=== PATIENT | female | born 1990 | race Caucasian/White ===

== ENCOUNTER 2018-11-21 08:00 | Outpatient (CLI) | payer OTHER ==
[2018-11-21 08:41] LABS: ALANINE AMINOTRANSFERASE 26 U/L (12-78); ALBUMIN 3.3 G/DL (3.4-5.0); ALBUMIN/GLOBULIN RATIO 0.8 (1.1-1.5); ALKALINE PHOSPHATASE 133 IU/L (46-116); ANION GAP 6 (8-16); ASPARTATE AMINO TRANSFERASE 18 U/L (10-37); BILIRUBIN,TOTAL 0.4 MG/DL (0.1-1.0); BLOOD UREA NITROGEN 11 MG/DL (7-18); BUN/CREATININE RATIO 17.2 (6.6-38.0); CALCIUM 8.8 MG/DL (8.5-10.1); CHLORIDE 103 MMOL/L (99-107); CREATININE 0.64 MG/DL (0.40-0.90); GLUCOSE 211 MG/DL (70-104); POTASSIUM 4.5 MMOL/L (3.5-5.1); SODIUM 137 MMOL/L (135-145); TOTAL CARBON DIOXIDE 27.9 MMOL/L (24-32); TOTAL PROTEIN 7.4 G/DL (6.4-8.2); eGFR > 90 ML/MIN
== END 2018-11-21 23:59 | disposition home or self-care (01) ==
LOC: LAB 08:00
PROVIDERS: ATTEND Family Medicine
DX: R74.8 Abnormal levels of other serum enzymes (principal)
CPT/HCPCS: 36415; 80053; 82977

== ENCOUNTER 2018-12-02 11:25 | Outpatient (CLI) | payer OTHER | END 2018-12-02 23:59 | disposition home or self-care (01) | LOC: LAB 11:25 | PROVIDERS: ATTEND Family Medicine | DX: H53.9 Unspecified visual disturbance (principal) | CPT/HCPCS: 36415; 85651; 86140 ==

== ENCOUNTER 2018-12-04 07:38 | Outpatient (CLI) | payer OTHER ==
[2018-12-06] MEDS ORDERED: gadopentetate dimeglumine 10 MMOL/20 ML syringe IV ONE (09:21)
== END 2018-12-04 23:59 | disposition home or self-care (01) ==
LOC: RAD 07:38
PROVIDERS: ATTEND Ophthalmology
DX: I67.82 Cerebral ischemia (principal); H53.453 Other localized visual field defect, bilateral; Z88.2 Allergy status to sulfonamides
CPT/HCPCS: 70543; 70553

== ENCOUNTER 2018-12-15 00:29 | Outpatient (CLI) | payer OTHER | END 2018-12-15 23:59 | disposition home or self-care (01) | LOC: DIABETIC 00:29 | PROVIDERS: ATTEND Family Medicine | DX: E11.65 Type 2 diabetes mellitus with hyperglycemia (principal) | CPT/HCPCS: G0108 ==

== ENCOUNTER 2018-12-29 08:01 | Outpatient (CLI) | payer OTHER ==
[2018-12-29 08:56] LABS: ALANINE AMINOTRANSFERASE 18 U/L (12-78); ALBUMIN 3.4 G/DL (3.4-5.0); ALBUMIN/GLOBULIN RATIO 0.8 (1.1-1.5); ALKALINE PHOSPHATASE 129 IU/L (46-116); ANION GAP 8 (8-16); ASPARTATE AMINO TRANSFERASE 11 U/L (10-37); BILIRUBIN,TOTAL 0.3 MG/DL (0.1-1.0); BLOOD UREA NITROGEN 11 MG/DL (7-18); BUN/CREATININE RATIO 15.3 (6.6-38.0); CALCIUM 8.5 MG/DL (8.5-10.1); CHLORIDE 104 MMOL/L (99-107); CREATININE 0.72 MG/DL (0.40-0.90); GLUCOSE 205 MG/DL (70-104); POTASSIUM 4.2 MMOL/L (3.5-5.1); SODIUM 138 MMOL/L (135-145); TOTAL CARBON DIOXIDE 26.1 MMOL/L (24-32); TOTAL PROTEIN 7.5 G/DL (6.4-8.2); eGFR > 90 ML/MIN
[2018-12-29 08:58] LABS: HEMOGLOBIN A1C 8.5 % (4.5-6.2)
== END 2018-12-29 23:59 | disposition home or self-care (01) ==
LOC: LAB 08:01
PROVIDERS: ATTEND Family Medicine
DX: E10.65 Type 1 diabetes mellitus with hyperglycemia (principal); R74.8 Abnormal levels of other serum enzymes; H53.9 Unspecified visual disturbance
CPT/HCPCS: 36415; 80053; 82977; 83036

== ENCOUNTER 2018-12-30 02:45 | Outpatient (CLI) | payer OTHER | END 2018-12-30 23:59 | disposition home or self-care (01) | LOC: DIABETIC 02:45 | PROVIDERS: ATTEND Family Medicine | DX: E10.9 Type 1 diabetes mellitus without complications (principal); E66.9 Obesity, unspecified; Z79.4 Long term (current) use of insulin; Z79.899 Other long term (current) drug therapy | CPT/HCPCS: G0108 ==

== ENCOUNTER 2019-01-13 02:03 | Outpatient (CLI) | payer OTHER | END 2019-01-13 23:59 | disposition home or self-care (01) | LOC: DIABETIC 02:03 | PROVIDERS: ATTEND Family Medicine | DX: E10.9 Type 1 diabetes mellitus without complications (principal); E66.9 Obesity, unspecified; Z79.4 Long term (current) use of insulin; Z79.899 Other long term (current) drug therapy | CPT/HCPCS: G0108 ==

== ENCOUNTER 2019-03-03 04:30 | Outpatient (CLI) | payer OTHER | END 2019-03-03 23:59 | disposition home or self-care (01) | LOC: DIABETIC 04:30 | PROVIDERS: ATTEND Family Medicine | DX: E10.9 Type 1 diabetes mellitus without complications (principal); E66.9 Obesity, unspecified; Z79.4 Long term (current) use of insulin; Z79.899 Other long term (current) drug therapy | CPT/HCPCS: G0108 ==

== ENCOUNTER 2019-03-06 08:11 | Outpatient (CLI) | payer OTHER ==
[2019-03-06 09:13] LABS: BASOPHILS # (AUTO) 0.1 X10'3 (0-0.2); BASOPHILS % (AUTO) 0.8 % (0-1); EOSINOPHILS # (AUTO) 0.1 X10'3 (0-0.9); EOSINOPHILS % (AUTO) 1.5 % (0-6); HEMATOCRIT 39.3 % (35.0-45.0); LYMPHOCYTES # (AUTO) 1.8 X10'3 (1.1-4.8); LYMPHOCYTES % (AUTO) 23.9 % (21-51); MEAN CORPUSCULAR HEMOGLOBIN 28.3 PG (27.0-31.0); MEAN CORPUSCULAR HGB CONC 33.1 g/dL (33.0-36.5); MEAN CORPUSCULAR VOLUME 85.4 FL (78-98); MEAN PLATELET VOLUME 10.5 FL (7.4-10.4); MONOCYTES # (AUTO) 0.4 X10'3 (0-0.9); MONOCYTES % (AUTO) 5.7 % (2-12); NEUTROPHILS % (AUTO) 68.1 % (42-75); PLATELET COUNT 238 X10'3 (140-440); RED CELL DISTRIBUTION WIDTH 14.3 % (11.5-14.5); WHITE BLOOD COUNT 7.4 X10'3 (4.5-11.0)
[2019-03-06 09:22] LABS: CLARITY,URINE CLEAR (Clear); COLOR,URINE YELLOW (Yellow); GLUCOSE, URINE 250 mg/dl (Neg); KETONES,URINE >=80 mg/dl (Neg); LEUKOCYTE ESTERASE ,URINE NEGATIVE (Neg); NITRITES, URINE NEGATIVE (Neg); OCCULT BLOOD,URINE NEGATIVE (Neg); PROTEIN,URINE NEGATIVE (Neg)
[2019-03-06 09:23] LABS: UA COLLECTION TYPE NON-SPECIFIED
[2019-03-06 09:29] LABS: ALANINE AMINOTRANSFERASE 6 U/L (12-78); ALBUMIN 3.4 G/DL (3.4-5.0); ALBUMIN/GLOBULIN RATIO 0.8 (1.1-1.5); ALKALINE PHOSPHATASE 106 IU/L (46-116); ANION GAP 8 (8-16); ASPARTATE AMINO TRANSFERASE 11 U/L (10-37); BILIRUBIN,TOTAL 0.4 MG/DL (0.1-1.0); BLOOD UREA NITROGEN 6 MG/DL (7-18); BUN/CREATININE RATIO 7.7 (6.6-38.0); C-REACTIVE PROTEIN 0.97 MG/DL (0.0-0.5); CALCIUM 8.8 MG/DL (8.5-10.1); CHLORIDE 104 MMOL/L (99-107); CREATINE KINASE 74 U/L (26-192); CREATININE 0.78 MG/DL (0.40-0.90); GLUCOSE 232 MG/DL (70-104); POTASSIUM 4.3 MMOL/L (3.5-5.1); SODIUM 138 MMOL/L (135-145); TOTAL CARBON DIOXIDE 25.9 MMOL/L (24-32); TOTAL PROTEIN 7.5 G/DL (6.4-8.2); eGFR 89 ML/MIN
[2019-03-06 09:48] LABS: LARGE PLATELETS FEW; PLATELET ESTIMATE NORMAL
[2019-03-06 10:05] LABS: RHEUM FACTOR QUAL REFLEX TITER NEGATIVE (Neg)
[2019-03-07 20:32] LABS: ANTINUCLEAR ANTIBODIES Negative (Negative)
[2019-03-09 08:09] LABS: ALDOLASE 2.7 U/L (3.3-10.3)
== END 2019-03-06 23:59 | disposition home or self-care (01) ==
LOC: LAB 08:11
PROVIDERS: ATTEND Family Medicine
DX: L02.232 Carbuncle of back [any part, except buttock and flank] (principal)
CPT/HCPCS: 36415; 80053; 81003; 82085; 82550; 85025; 86038; 86140; 86430

== ENCOUNTER 2019-04-11 22:06 | Emergency (ER) | payer OTHER ==
[~2019-04-11] VITALS: Ht 157.5 cm; Wt 93.0 kg
[2019-04-11] MEDS ORDERED: LORazepam 1 MG tablet PO ONE (22:20)
[2019-04-11 23:50] VITALS: BP 120/71
== END 2019-04-11 23:51 | disposition home or self-care (01) ==
LOC: ER 22:07
DX: F41.9 Anxiety disorder, unspecified (principal); R11.2 Nausea with vomiting, unspecified; Z88.2 Allergy status to sulfonamides
CPT/HCPCS: 99284

== ENCOUNTER → 2019-09-04 | Outpatient (CLI) | payer OTHER ==
[2019-09-04 14:01] LABS: BASOPHILS # (AUTO) 0.1 X10'3 (0-0.2); BASOPHILS % (AUTO) 0.9 % (0-1); EOSINOPHILS # (AUTO) 0.2 X10'3 (0-0.9); EOSINOPHILS % (AUTO) 1.8 % (0-6); HEMATOCRIT 40.9 % (35.0-45.0); HEMOGLOBIN 13.4 g/dl (12.0-16.0); LYMPHOCYTES # (AUTO) 2.4 X10'3 (1.1-4.8); LYMPHOCYTES % (AUTO) 27.4 % (21-51); MEAN CORPUSCULAR HEMOGLOBIN 27.8 PG (27.0-31.0); MEAN CORPUSCULAR HGB CONC 32.7 g/dL (33.0-36.5); MEAN CORPUSCULAR VOLUME 85.1 FL (78-98); MEAN PLATELET VOLUME 10.6 FL (7.4-10.4); MONOCYTES # (AUTO) 0.6 X10'3 (0-0.9); MONOCYTES % (AUTO) 6.5 % (2-12); NEUTROPHILS # (AUTO) 5.6 X10'3 (1.8-7.7); NEUTROPHILS % (AUTO) 63.4 % (42-75); PLATELET COUNT 216 X10'3 (140-440); RED CELL DISTRIBUTION WIDTH 13.9 % (11.5-14.5); WHITE BLOOD COUNT 8.9 X10'3 (4.5-11.0)
[2019-09-04 14:10] LABS: HEMOGLOBIN A1C 7.5 % (4.5-6.2)
[2019-09-04 14:31] LABS: LARGE PLATELETS FEW; PLATELET ESTIMATE NORMAL
[2019-09-04 14:45] LABS: ALANINE AMINOTRANSFERASE 16 U/L (12-78); ALBUMIN 3.4 G/DL (3.4-5.0); ALBUMIN/GLOBULIN RATIO 0.9 (1.1-1.5); ALKALINE PHOSPHATASE 102 IU/L (46-116); ANION GAP 7 (8-16); ASPARTATE AMINO TRANSFERASE 13 U/L (10-37); BILIRUBIN,TOTAL 0.2 MG/DL (0.1-1.0); BLOOD UREA NITROGEN 10 MG/DL (7-18); BUN/CREATININE RATIO 12.2 (6.6-38.0); C-REACTIVE PROTEIN 0.54 MG/DL (0.0-0.5); CALCIUM 8.8 MG/DL (8.5-10.1); CHLORIDE 106 MMOL/L (99-107); CREATININE 0.82 MG/DL (0.40-0.90); GLUCOSE 131 MG/DL (70-104); POTASSIUM 3.9 MMOL/L (3.5-5.1); SODIUM 139 MMOL/L (135-145); TOTAL CARBON DIOXIDE 25.7 MMOL/L (24-32); TOTAL PROTEIN 7.2 G/DL (6.4-8.2); eGFR 84 ML/MIN
[2019-09-04 14:47] LABS: RHEUM FACTOR QUAL REFLEX TITER NEGATIVE (Neg)
== END | disposition home or self-care (01) ==
LOC: LAB 12:56
PROVIDERS: ATTEND Family Medicine
DX: K21.9 Gastro-esophageal reflux disease without esophagitis (principal); M25.50 Pain in unspecified joint; F32.9 Major depressive disorder, single episode, unspecified
CPT/HCPCS: 36415; 80053; 82043; 83036; 84439; 84443; 85025; 85651; 86038; 86140; 86430

== ENCOUNTER → 2019-09-11 | Outpatient (CLI) | payer OTHER ==
[2019-09-11 09:08] LABS: BASOPHILS # (AUTO) 0.1 X10'3 (0-0.2); BASOPHILS % (AUTO) 0.9 % (0-1); EOSINOPHILS # (AUTO) 0.3 X10'3 (0-0.9); EOSINOPHILS % (AUTO) 3.2 % (0-6); HEMATOCRIT 40.5 % (35.0-45.0); HEMOGLOBIN 13.3 g/dl (12.0-16.0); LYMPHOCYTES % (AUTO) 23.1 % (21-51); MEAN CORPUSCULAR HEMOGLOBIN 28.1 PG (27.0-31.0); MEAN CORPUSCULAR HGB CONC 32.8 g/dL (33.0-36.5); MEAN CORPUSCULAR VOLUME 85.6 FL (78-98); MEAN PLATELET VOLUME 10.4 FL (7.4-10.4); MONOCYTES # (AUTO) 0.8 X10'3 (0-0.9); NEUTROPHILS # (AUTO) 5.5 X10'3 (1.8-7.7); NEUTROPHILS % (AUTO) 63.8 % (42-75); PLATELET COUNT 222 X10'3 (140-440); RED BLOOD COUNT 4.73 X10'6 (4.20-5.60); RED CELL DISTRIBUTION WIDTH 13.9 % (11.5-14.5); WHITE BLOOD COUNT 8.6 X10'3 (4.5-11.0)
[2019-09-11 09:32] LABS: HIV ANTIBODY 1&2 RAPID NON-REACTIVE (Neg)
== END | disposition home or self-care (01) ==
LOC: RAD 09-10 14:03
PROVIDERS: ATTEND Family Medicine
DX: M16.0 Bilateral primary osteoarthritis of hip (principal); M79.89 Other specified soft tissue disorders; F41.1 Generalized anxiety disorder; K21.9 Gastro-esophageal reflux disease without esophagitis; R23.2 Flushing; R68.82 Decreased libido; M25.562 Pain in left knee; M25.561 Pain in right knee; M25.512 Pain in left shoulder; M25.511 Pain in right shoulder
CPT/HCPCS: 73030; 73522; 73564; 83001; 83002; 84146; 84402; 84403; 85025; 86703

== ENCOUNTER 2019-10-07 10:06 | Outpatient (CLI) | payer OTHER | END 2019-10-07 23:59 | disposition home or self-care (01) | LOC: RAD 10:06 | PROVIDERS: ATTEND Family Medicine | DX: N83.202 Unspecified ovarian cyst, left side (principal); N83.201 Unspecified ovarian cyst, right side | CPT/HCPCS: 76830; 76856 ==

== ENCOUNTER 2019-11-26 13:18 | Outpatient (CLI) | payer OTHER ==
[2019-11-26 14:14] LABS: CREATINE KINASE 81 U/L (26-192)
== END 2019-11-26 23:59 | disposition home or self-care (01) ==
LOC: LAB 13:18
PROVIDERS: ATTEND Family Medicine
DX: R53.1 Weakness (principal); M25.50 Pain in unspecified joint; H53.9 Unspecified visual disturbance
CPT/HCPCS: 36415; 82550; 85651; 86200

== ENCOUNTER 2020-04-25 22:23 | Emergency (ER) | payer BC, OTHER ==
[~2020-04-25] VITALS: Ht 160 cm; Wt 100.2 kg
[~2020-04-25 22:23] MED LIST: Melatonin 3mg tablet PO SCH
[2020-04-25] MEDS ORDERED: LORazepam 1 MG tablet PO ONE (23:00)
[2020-04-25 23:04] LABS: BASOPHILS # (AUTO) 0.1 X10'3 (0-0.2); BASOPHILS % (AUTO) 1.6 % (0-1); EOSINOPHILS # (AUTO) 0.2 X10'3 (0-0.9); EOSINOPHILS % (AUTO) 2.3 % (0-6); HEMATOCRIT 40.3 % (35.0-45.0); HEMOGLOBIN 13.6 g/dl (12.0-16.0); LYMPHOCYTES # (AUTO) 2.7 X10'3 (1.1-4.8); LYMPHOCYTES % (AUTO) 34.8 % (21-51); MEAN CORPUSCULAR HEMOGLOBIN 28.3 PG (27.0-31.0); MEAN CORPUSCULAR HGB CONC 33.7 g/dL (33.0-36.5); MEAN PLATELET VOLUME 10.1 FL (7.4-10.4); MONOCYTES # (AUTO) 0.6 X10'3 (0-0.9); MONOCYTES % (AUTO) 7.3 % (2-12); NEUTROPHILS # (AUTO) 4.3 X10'3 (1.8-7.7); PLATELET COUNT 230 X10'3 (140-440); RED CELL DISTRIBUTION WIDTH 13.6 % (11.5-14.5); WHITE BLOOD COUNT 7.9 X10'3 (4.5-11.0)
--- NOTE | 2020-04-25 23:16 | NUR ---
PT BROUGHT STRAIGHT BACK, TRIAGED AND SEEN BY DR. PINON. PT STATES THAT SHE HAS HAD BUILDING AMOUNTS OF STRESS AND IT IS MAKING HER PANIC DISORDER WORSE. SHE STATES SHE IS HAVING FREQUENT PANICK ATTACKS AND IT HAS BEEN WAKING HER UP AT NIGHT. HER JOB IS VERY STRESSFUL DUE TO SHORT STAFFING AND THE CURRENT MEDICATIONS SHE IS ON SHE FEELS ARE NOT WORKING.
[2020-04-25 23:20] LABS: ALANINE AMINOTRANSFERASE 43 U/L (12-78); ALBUMIN 3.2 G/DL (3.4-5.0); ALBUMIN/GLOBULIN RATIO 0.8 (1.1-1.5); ALKALINE PHOSPHATASE 95 IU/L (46-116); ANION GAP 9 (8-16); ASPARTATE AMINO TRANSFERASE 23 U/L (10-37); BILIRUBIN,TOTAL 0.3 MG/DL (0.1-1.0); BLOOD UREA NITROGEN 9 MG/DL (7-18); BUN/CREATININE RATIO 10.5 (6.6-38.0); CALCIUM 8.8 MG/DL (8.5-10.1); CHLORIDE 105 MMOL/L (99-107); CREATININE 0.86 MG/DL (0.40-0.90); ETHANOL < 0.010 GM/DL (0.0-0.010); GLUCOSE 146 MG/DL (70-104); POTASSIUM 3.5 MMOL/L (3.5-5.1); SODIUM 139 MMOL/L (135-145); TOTAL CARBON DIOXIDE 25.3 MMOL/L (24-32); TOTAL PROTEIN 7.4 G/DL (6.4-8.2); eGFR 79 ML/MIN
--- NOTE | 2020-04-25 23:20 | NUR ---
PT GIVEN ATIVAN 1MG PO PER DR. PINON
[2020-04-25 23:21] LABS: ACETAMINOPHEN < 2.0 UG/ML (10-30)
[2020-04-25 23:45] LABS: URINE HCG NEGATIVE (NEG)
[2020-04-25 23:57] LABS: URINE AMPHETAMINE SCREEN NEGATIVE (Neg); URINE BARBITUATE SCREEN NEGATIVE (Neg); URINE BENZODIAZEPINES SCREEN NEGATIVE (Neg); URINE CANNABINOID SCREEN NEGATIVE (Neg); URINE COCAINE SCREEN NEGATIVE (Neg); URINE METHADONE SCREEN NEGATIVE (Neg); URINE OPIATE SCREEN NEGATIVE (Neg); URINE PHENCYCLIDINE SCREEN NEGATIVE (Neg)
[2020-04-26] MEDS ORDERED: PARO10TA85 PO (00:25)
[2020-04-26] MEDS ORDERED: VILA40TA PO (00:26)
[2020-04-26] MEDS ORDERED: BUPR150T8 PO (00:33)
[2020-04-26] MEDS ORDERED: ETHI1TAB20 PO (00:34)
[2020-04-26] MEDS ORDERED: PROP10TA10 PO (00:42)
[2020-04-26] MEDS ORDERED: LISI2.5T89 PO (00:44)
[2020-04-26] MEDS ORDERED: INSU100V46 (00:45)
[2020-04-26] MEDS ORDERED: LORA-269 PO (00:48)
--- NOTE | 2020-04-26 01:18 | NUR ---
PT REQUESTS MEDICATION TO HELP HER SLEEP, PER DR. PINON MELATONIN 3MG PO GIVEN
[2020-04-26] MEDS ORDERED: LORazepam 0.5 MG tablet PO PRN (01:25)
--- NOTE | 2020-04-26 02:49 | NUR ---
PT IS ASLEEP ON R SIDE, RESPIRATIONS EVEN AND UNLABORED
--- NOTE | 2020-04-26 04:11 | NUR ---
PACKET FAXED TO [facility]
--- NOTE | 2020-04-26 04:52 | NUR ---
Izabela pablo in [facility] - 04/26/20 at 0454 by KIRK Pt put in bed 15, helped into green scrubs, belongings bagged and room secured. Pt resting in bed with warm blankets, sleeping.
[2020-04-26 05:10] VITALS: BP 104/53
--- NOTE | 2020-04-26 05:11 | NUR ---
Pt resting in bed, sleeping with RR 14
[2020-04-26] MEDS ORDERED: buPROPion SR 150mg tablet PO SCH (08:00)
[2020-04-26] MEDS ORDERED: propranolol 10mg tablet PO SCH (08:00)
--- NOTE | 2020-04-26 09:45 | NUR ---
Pt talking with [facility] evaluater at bedside.
--- NOTE | 2020-04-26 10:01 | NUR ---
PT MOVED FROM ER BED 13 TO OVERFLOW BED 25.
[2020-04-26] MEDS ORDERED: insulin pump.resvr SQ SCH (12:00)
[2020-04-26] MEDS ORDERED: VILAZODONE HYDROCHLORIDE 40 MG PO SCH ×2 (21:00)
[2020-04-26] MEDS ORDERED: DROSPIRENONE PO SCH (21:00)
[2020-04-26] MEDS ORDERED: lisinopril 5mg tablet PO SCH (21:00)
[2020-04-26] MEDS ORDERED: PARoxetine 10mg tablet PO SCH (21:00)
[2020-04-26] MEDS ORDERED: ETHINYL ESTRADIOL PO SCH (21:00)
== END 2020-04-26 11:00 | disposition home or self-care (01) ==
LOC: ER 22:24 → EEVIPCON 22:24 → ER 04-26 11:00
DX: R45.851 Suicidal ideations (principal); F41.9 Anxiety disorder, unspecified; F32.9 Major depressive disorder, single episode, unspecified; E11.9 Type 2 diabetes mellitus without complications; Z88.2 Allergy status to sulfonamides; Z79.899 Other long term (current) drug therapy
CPT/HCPCS: 36415; 80053; 80305; 80320; 80329; 81025; 82948; 85025; 99284; 99285

== ENCOUNTER 2020-05-13 13:26 | Outpatient (CLI) | payer BC ==
[~2020-05-13 13:26] MED LIST changes: +BUPR150T8 PO; +ETHI1TAB20 PO; +INSU100V46; +LISI2.5T89 PO; +LORA-269 PO; -Melatonin 3mg tablet PO SCH; +PARO10TA85 PO; +PROP10TA10 PO; +VILA40TA PO
[2020-05-13 14:46] LABS: BASOPHILS # (AUTO) 0.1 X10'3 (0-0.2); BASOPHILS % (AUTO) 0.9 % (0-1); EOSINOPHILS # (AUTO) 0.2 X10'3 (0-0.9); EOSINOPHILS % (AUTO) 2.2 % (0-6); HEMATOCRIT 41.8 % (35.0-45.0); HEMOGLOBIN 13.9 g/dl (12.0-16.0); LYMPHOCYTES # (AUTO) 3.3 X10'3 (1.1-4.8); LYMPHOCYTES % (AUTO) 29.7 % (21-51); MEAN CORPUSCULAR HGB CONC 33.2 g/dL (33.0-36.5); MEAN CORPUSCULAR VOLUME 84.4 FL (78-98); MEAN PLATELET VOLUME 10.8 FL (7.4-10.4); MONOCYTES # (AUTO) 0.8 X10'3 (0-0.9); MONOCYTES % (AUTO) 7.3 % (2-12); NEUTROPHILS # (AUTO) 6.7 X10'3 (1.8-7.7); NEUTROPHILS % (AUTO) 59.9 % (42-75); PLATELET COUNT 327 X10'3 (140-440); RED BLOOD COUNT 4.96 X10'6 (4.20-5.60); RED CELL DISTRIBUTION WIDTH 13.5 % (11.5-14.5); WHITE BLOOD COUNT 11.2 X10'3 (4.5-11.0)
[2020-05-13 14:48] LABS: COLOR,URINE YELLOW (Yellow); GLUCOSE, URINE NEGATIVE (Neg); KETONES,URINE NEGATIVE (Neg); LEUKOCYTE ESTERASE ,URINE NEGATIVE (Neg); NITRITES, URINE NEGATIVE (Neg); OCCULT BLOOD,URINE NEGATIVE (Neg); PH,URINE 7.5 (4.8-8.0); PROTEIN,URINE NEGATIVE (Neg); UROBILINOGEN,URINE 0.2 E.U/dL (0.2-1.0)
[2020-05-13 14:54] LABS: CHOL/HDL RATIO 2.6 (0.00-4.99); CHOLESTEROL 227 MG/DL (0-200); HDL CHOLESTEROL 86 MG/DL (35-60); LDL CHOLESTEROL 115 MG/DL (50-100); TRIGLYCERIDES 94 MG/DL (20-135)
[2020-05-13 14:59] LABS: UA COLLECTION TYPE NON-SPECIFIED
[2020-05-13 15:00] LABS: CLARITY,URINE CLEAR (Clear)
== END 2020-05-13 23:59 | disposition home or self-care (01) ==
LOC: LAB 13:26
PROVIDERS: ATTEND Family Medicine
DX: M25.50 Pain in unspecified joint (principal)
CPT/HCPCS: 80061; 81003; 82652; 85025

== ENCOUNTER 2020-06-15 07:59 | Outpatient (CLI) | payer BC ==
[~2020-06-15 07:59] MED LIST changes: +DIAZ10TA PO
[2020-06-15 08:37] LABS: BASOPHILS # (AUTO) 0.1 X10'3 (0-0.2); BASOPHILS % (AUTO) 1.2 % (0-1); EOSINOPHILS # (AUTO) 0.1 X10'3 (0-0.9); EOSINOPHILS % (AUTO) 2.1 % (0-6); HEMATOCRIT 39.4 % (35.0-45.0); HEMOGLOBIN 13.1 g/dl (12.0-16.0); LYMPHOCYTES # (AUTO) 2.3 X10'3 (1.1-4.8); LYMPHOCYTES % (AUTO) 32.2 % (21-51); MEAN CORPUSCULAR HEMOGLOBIN 27.7 PG (27.0-31.0); MEAN CORPUSCULAR HGB CONC 33.3 g/dL (33.0-36.5); MEAN CORPUSCULAR VOLUME 83.3 FL (78-98); MEAN PLATELET VOLUME 9.6 FL (7.4-10.4); MONOCYTES # (AUTO) 0.5 X10'3 (0-0.9); MONOCYTES % (AUTO) 6.7 % (2-12); NEUTROPHILS # (AUTO) 4.1 X10'3 (1.8-7.7); NEUTROPHILS % (AUTO) 57.8 % (42-75); PLATELET COUNT 291 X10'3 (140-440); RED BLOOD COUNT 4.73 X10'6 (4.20-5.60); RED CELL DISTRIBUTION WIDTH 13.6 % (11.5-14.5); WHITE BLOOD COUNT 7.1 X10'3 (4.5-11.0)
[2020-06-15 09:03] LABS: ALANINE AMINOTRANSFERASE 56 U/L (12-78); ALBUMIN/GLOBULIN RATIO 0.7 (1.1-1.5); ALKALINE PHOSPHATASE 113 IU/L (46-116); ANION GAP 7 (8-16); ASPARTATE AMINO TRANSFERASE 21 U/L (10-37); BILIRUBIN,TOTAL 0.4 MG/DL (0.1-1.0); BLOOD UREA NITROGEN 10 MG/DL (7-18); BUN/CREATININE RATIO 12.3 (6.6-38.0); CALCIUM 9.1 MG/DL (8.5-10.1); CHLORIDE 104 MMOL/L (99-107); CHOL/HDL RATIO 2.8 (0.00-4.99); CHOLESTEROL 216 MG/DL (0-200); CREATININE 0.81 MG/DL (0.40-0.90); GLUCOSE 219 MG/DL (70-104); HDL CHOLESTEROL 76 MG/DL (35-60); LDL CHOLESTEROL 106 MG/DL (50-100); POTASSIUM 4.4 MMOL/L (3.5-5.1); SODIUM 138 MMOL/L (135-145); TOTAL CARBON DIOXIDE 26.8 MMOL/L (24-32); TOTAL PROTEIN 7.4 G/DL (6.4-8.2); TRIGLYCERIDES 161 MG/DL (20-135); eGFR 84 ML/MIN
[2020-06-15 09:13] LABS: HEMOGLOBIN A1C 7.6 % (4.5-6.2)
== END 2020-06-15 23:59 | disposition home or self-care (01) ==
LOC: LAB 07:59
PROVIDERS: ATTEND Physician Assistant
DX: Z79.899 Other long term (current) drug therapy (principal)
CPT/HCPCS: 36415; 80053; 80061; 82306; 83036; 84443; 85025

== ENCOUNTER 2020-08-10 11:13 | Outpatient (CLI) | payer BC ==
[2020-08-10 12:15] LABS: BASOPHILS # (AUTO) 0.1 X10'3 (0-0.2); BASOPHILS % (AUTO) 0.8 % (0-1); EOSINOPHILS # (AUTO) 0.1 X10'3 (0-0.9); EOSINOPHILS % (AUTO) 1.2 % (0-6); HEMATOCRIT 40.2 % (35.0-45.0); HEMOGLOBIN 13.2 g/dl (12.0-16.0); LYMPHOCYTES # (AUTO) 2.5 X10'3 (1.1-4.8); LYMPHOCYTES % (AUTO) 30.1 % (21-51); MEAN CORPUSCULAR HEMOGLOBIN 27.7 PG (27.0-31.0); MEAN CORPUSCULAR HGB CONC 32.9 g/dL (33.0-36.5); MEAN CORPUSCULAR VOLUME 84.2 FL (78-98); MEAN PLATELET VOLUME 9.8 FL (7.4-10.4); MONOCYTES # (AUTO) 0.7 X10'3 (0-0.9); MONOCYTES % (AUTO) 7.8 % (2-12); NEUTROPHILS # (AUTO) 5.1 X10'3 (1.8-7.7); NEUTROPHILS % (AUTO) 60.1 % (42-75); PLATELET COUNT 290 X10'3 (140-440); RED BLOOD COUNT 4.77 X10'6 (4.20-5.60); RED CELL DISTRIBUTION WIDTH 13.3 % (11.5-14.5); WHITE BLOOD COUNT 8.5 X10'3 (4.5-11.0)
[2020-08-10 12:36] LABS: ALANINE AMINOTRANSFERASE 34 U/L (12-78); ALBUMIN/GLOBULIN RATIO 0.7 (1.1-1.5); ALKALINE PHOSPHATASE 125 IU/L (46-116); ANION GAP 10 (8-16); ASPARTATE AMINO TRANSFERASE 17 U/L (10-37); BILIRUBIN,TOTAL 0.2 MG/DL (0.1-1.0); BLOOD UREA NITROGEN 12 MG/DL (7-18); BUN/CREATININE RATIO 13.3 (6.6-38.0); CALCIUM 8.8 MG/DL (8.5-10.1); CHLORIDE 100 MMOL/L (99-107); GLUCOSE 368 MG/DL (70-104); SODIUM 136 MMOL/L (135-145); TOTAL CARBON DIOXIDE 25.9 MMOL/L (24-32); TOTAL PROTEIN 7.2 G/DL (6.4-8.2); eGFR 75 ML/MIN
[2020-08-10 12:53] LABS: H PYLORI ANTIBODY NEGATIVE (Neg)
== END 2020-08-10 23:59 | disposition home or self-care (01) ==
LOC: LAB 11:13
PROVIDERS: ATTEND Family Medicine
DX: R10.9 Unspecified abdominal pain (principal)
CPT/HCPCS: 36415; 80053; 85025; 86677

== ENCOUNTER 2020-08-11 10:02 | Outpatient (CLI) | payer BC | END 2020-08-11 23:59 | disposition home or self-care (01) | LOC: RAD 10:02 | PROVIDERS: ATTEND Family Medicine | DX: R16.0 Hepatomegaly, not elsewhere classified (principal); K80.20 Calculus of gallbladder without cholecystitis without obstruction | CPT/HCPCS: 76700 ==

== ENCOUNTER 2020-08-12 22:37 | Inpatient (IN) | payer BC ==
[~2020-08-12] VITALS: Ht 157.5 cm; Wt 104.5 kg
[2020-08-12 23:21] LABS: BASOPHILS # (AUTO) 0.1 X10'3 (0-0.2); BASOPHILS % (AUTO) 0.7 % (0-1); EOSINOPHILS # (AUTO) 0.1 X10'3 (0-0.9); EOSINOPHILS % (AUTO) 1.3 % (0-6); HEMATOCRIT 39.4 % (35.0-45.0); HEMOGLOBIN 13.3 g/dl (12.0-16.0); LYMPHOCYTES # (AUTO) 2.8 X10'3 (1.1-4.8); MEAN CORPUSCULAR HEMOGLOBIN 27.9 PG (27.0-31.0); MEAN CORPUSCULAR HGB CONC 33.8 g/dL (33.0-36.5); MEAN CORPUSCULAR VOLUME 82.7 FL (78-98); MEAN PLATELET VOLUME 10.1 FL (7.4-10.4); MONOCYTES # (AUTO) 0.6 X10'3 (0-0.9); MONOCYTES % (AUTO) 6.6 % (2-12); NEUTROPHILS # (AUTO) 5.7 X10'3 (1.8-7.7); NEUTROPHILS % (AUTO) 61.4 % (42-75); PLATELET COUNT 271 X10'3 (140-440); RED BLOOD COUNT 4.76 X10'6 (4.20-5.60); RED CELL DISTRIBUTION WIDTH 12.9 % (11.5-14.5); WHITE BLOOD COUNT 9.2 X10'3 (4.5-11.0)
--- NOTE | 2020-08-12 23:29 | NUR ---
PT CANNOT PROVIDE URINE SAMPLE AT THIS TIME
[2020-08-12 23:30] LABS: ALANINE AMINOTRANSFERASE 44 U/L (12-78); ALBUMIN/GLOBULIN RATIO 0.7 (1.1-1.5); ALKALINE PHOSPHATASE 119 IU/L (46-116); AMYLASE 28 U/L (25-115); ANION GAP 11 (8-16); ASPARTATE AMINO TRANSFERASE 29 U/L (10-37); BILIRUBIN,TOTAL 0.2 MG/DL (0.1-1.0); BLOOD UREA NITROGEN 12 MG/DL (7-18); BUN/CREATININE RATIO 14.5 (6.6-38.0); CALCIUM 8.9 MG/DL (8.5-10.1); CHLORIDE 104 MMOL/L (99-107); CREATININE 0.83 MG/DL (0.40-0.90); GLUCOSE 272 MG/DL (70-104); LIPASE 87 U/L (73-393); POTASSIUM 4.2 MMOL/L (3.5-5.1); SODIUM 138 MMOL/L (135-145); TOTAL CARBON DIOXIDE 23.2 MMOL/L (24-32); TOTAL PROTEIN 7.1 G/DL (6.4-8.2); eGFR 82 ML/MIN
--- NOTE | 2020-08-12 23:48 | NUR ---
UPDATED MD REGARDING PT'S INCREASING ABD PAIN, GLUCOSE LEVEL AND REQUEST FOR NAUSEA MEDS
[2020-08-13] VITALS (17 sets, daily range): BP systolic 87–145; BP diastolic 51–96
[2020-08-13 00:04] LABS: CLARITY,URINE CLEAR (Clear); COLOR,URINE YELLOW (Yellow); GLUCOSE, URINE >=1000 mg/dl (Neg); KETONES,URINE NEGATIVE (Neg); LEUKOCYTE ESTERASE ,URINE NEGATIVE (Neg); NITRITES, URINE NEGATIVE (Neg); OCCULT BLOOD,URINE NEGATIVE (Neg); PROTEIN,URINE NEGATIVE (Neg); UROBILINOGEN,URINE 0.2 E.U/dL (0.2-1.0)
[2020-08-13 00:06] LABS: UA COLLECTION TYPE CLN CATCH MIDSTREAM
[2020-08-13 00:08] LABS: URINE HCG NEGATIVE (NEG)
[2020-08-13 00:15] LABS: BACTERIA,URINE NONE SEEN /HPF (Neg); RBC,URINE NONE SEEN /HPF (0-2); SQUAMOUS EPITHELIAL CELL,UR FEW /LPF (FEW); WBC,URINE NONE SEEN /HPF (0-4)
[2020-08-13] MEDS ORDERED: metroNIDAZOLE-Flagyl 500mg/NS 100 ML IV STA (00:37)
[2020-08-13] MEDS ORDERED: morphine 4 MG/ML inj SYRINge IV ONE (00:40)
[2020-08-13] MEDS ORDERED: ondansetron/PF 4mg/2ml inj IV ONE (00:40)
[2020-08-13] MEDS ORDERED: CefTRIAXone/D5W-Rocephin 1gm 50 ML IV ONE (00:40)
[2020-08-13] MEDS ORDERED: ATOR10TA87 PO (01:36)
[2020-08-13] MEDS ORDERED: BUPR150T8 PO (01:36)
[2020-08-13] MEDS ORDERED: OMEP40CA13 PO (01:36)
[2020-08-13] MEDS ORDERED: HYDR-3686 PO (01:36)
[2020-08-13] MEDS ORDERED: VILA10TA PO (01:36)
[2020-08-13] MEDS ORDERED: PROP10TA10 PO (01:36)
[2020-08-13] MEDS ORDERED: DESV50TA10 PO (01:36)
[2020-08-13] MEDS ORDERED: CLON-527 PO (01:36)
[2020-08-13] MEDS ORDERED: MAGN100T PO (01:36)
[2020-08-13] MEDS ORDERED: ETHI1TAB20 PO (01:36)
--- NOTE | 2020-08-13 01:58 | NUR ---
PER DR CARDOZA- TURN OFF INSULIN PUMP AND START PATIENT ON LOW DOSE HYPERGLYCEMIC PROTOCOL.
[2020-08-13] MEDS ORDERED: dextrose ORAL solution 15 GM/59 ML bottle PO PRN ×2 (02:10)
[2020-08-13] MEDS ORDERED: glucagon, human recombinant 1mg kit SUBCUT PRN (02:10)
[2020-08-13] MEDS ORDERED: MESSAGE TO PHARMACY PO ONE (02:10)
[2020-08-13] MEDS ORDERED: dextrose 50%-water 50ml dispensing syringe IV PRN ×2 (02:10)
[2020-08-13] MEDS: insulin glargine (Lantus) pen - multi-dose SQ SCH ×2 (03:10→21:36)
[2020-08-13] MEDS ORDERED: magnesium Cl slow-release 64mg tablet PO PRN (03:30)
[2020-08-13] MEDS ORDERED: magnesium 2GM in 50ml NS 50 ML IV PRN (03:30)
[2020-08-13] MEDS ORDERED: potassium Cl 40MEQ/1/2NS 520ml 520 ML IV PRN ×2 (03:30)
[2020-08-13] MEDS ORDERED: acetaminophen 325mg tablet PO PRN (03:30)
[2020-08-13] MEDS ORDERED: potassium Cl 20 mEq SR tablet PO PRN ×2 (03:30)
[2020-08-13] MEDS ORDERED: magnesium 4gm in 100ml NS 100 ML IV PRN (03:30)
[2020-08-13] MEDS ORDERED: BUPR-317 PO (03:37)
[2020-08-13] MEDS: ondansetron/PF 4mg/2ml inj IV PRN ×2 (04:09→16:50)
[2020-08-13] MEDS: normal saline 1000ml 1,000 ML IV SCH ×2 (04:09→16:46)
[2020-08-13] MEDS: morphine 2 MG/ML inj. syringe IV PRN ×3 (04:10→20:59)
[2020-08-13] MEDS ORDERED: LORazepam 2 mg/ml vial IV PRN (04:50)
[2020-08-13] MEDS: insulin Lispro (HumaLOG) vial - multi-dose SQ SCH ×5 (05:00→21:34)
--- NOTE | 2020-08-13 05:40 | NUR ---
0400: Received report from Jorge Luis RN 0420: Patient arrived to unit via wheelchair, with belongings bag and small backpack. cell phone and wallet. Patient wants to keep those items at bedside, bag of clothes are n closet. Patient asked if I could check BG as she felt it was high. BG 297, I got an order to give insulin per protocol early, at a low dose. 4 units of insulin was given per protocol level 1 .
--- NOTE | 2020-08-13 06:23 | NUR ---
Problems reprioritized. Patient report given, questions answered & plan of care reviewed with LOURDES Duarte.
--- NOTE | 2020-08-13 06:44 | NUR ---
Patient in room [facility] 340. I have received report from LOURDES aSlinas and had the opportunity to ask questions and assume patient care.
[2020-08-13] MEDS: K and/or MAG REPLACEMENT MC SCH ×2 (08:00→20:00)
[2020-08-13] MEDS ORDERED: INDOCYANINE GREEN 25 MG/10 ML VIAL IV ONE (08:25)
[2020-08-13] MEDS: magnesium oxide 400mg tablet PO SCH (08:31)
[2020-08-13] MEDS: pantoprazole 40 MG vial IV SCH (08:51)
[2020-08-13] MEDS: LORazepam 2 mg/ml vial IV PRN ×3 (09:07→12:28)
[2020-08-13] MEDS ORDERED: BUPIVAcaine/PF 2.5 mg/ml (0.25%) 30ml vial ONE (09:45)
[2020-08-13] MEDS ORDERED: LIDOcaine 1% 30ml preserv. free vial ONE (09:45)
--- NOTE | 2020-08-13 10:10 | NUR ---
Received from OR via BED , accompanied by Anesthesiologist and report given by Anesthesiolgist. PATIENT WAKING UP, NO S/S OF PAIN, V/S WNL, SCD ON, 20G TO RUE, LAP SURGICAL SITES TO ABDOMEN CDI.
--- NOTE | 2020-08-13 10:13 | NUR ---
Called report to Yudith in the OR for Recovery and Surgery. Patient stable for transport.
[2020-08-13] MEDS ORDERED: morphine 2 MG/ML inj. syringe IV PRN (10:25)
[2020-08-13] MEDS ORDERED: ringers solution, lacted 1,000 ML IV SCH (10:25)
[2020-08-13] MEDS ORDERED: insulin regular, human U-100 3ml vial - multi-dose ONE (10:25)
[2020-08-13] MEDS ORDERED: meperidine/PF 25mg/ml syringe IV PRN ×3 (10:25)
[2020-08-13] MEDS ORDERED: ondansetron/PF 4mg/2ml inj IV PRN (10:25)
[2020-08-13] MEDS ORDERED: proCHLORperazine 10 MG/2 ml inj IV PRN (10:25)
[2020-08-13] MEDS ORDERED: fentaNYL/PF 50MCG/1 ML 2ML syringe ONE (10:27)
[2020-08-13] MEDS ORDERED: midazolam 1 mg/ML 2ml injection ONE (10:28)
[2020-08-13] MEDS ORDERED: propofol inj 20 ML IV ONE (10:33)
[2020-08-13] MEDS ORDERED: LIDOcaine 2% (20mg/ml) 5ml vial ONE (10:33)
[2020-08-13] MEDS ORDERED: ceFAZolin 1000mg inj ONE ×2 (10:53)
[2020-08-13] MEDS ORDERED: ondansetron/PF 4mg/2ml inj ONE (10:57)
[2020-08-13] MEDS ORDERED: dexamethasone sod phosphate 4mg/ml inj. ONE (10:57)
[2020-08-13] MEDS ORDERED: rocuronium 10mg/ml inj IV ONE (10:57)
[2020-08-13] MEDS ORDERED: acetaminophen 1,000mg/100ml IV 100 ML IV ONE (11:39)
[2020-08-13] MEDS ORDERED: HYDROcodone/acetaminophen 5mg/325mg tablet PO PRN (12:05)
--- NOTE | 2020-08-13 12:12 | NUR ---
PATIENT WIDE AWAKE NOW VERY PAINFUL SHORTLY AFTER ARRIVAL SEE EMAR, VERY EMOTIONAL WELL.
[2020-08-13] MEDS: morphine 4 MG/ML inj SYRINge IV PRN ×3 (12:19→12:39)
[2020-08-13] MEDS ORDERED: LORazepam 2 mg/ml vial IV ONE (12:20)
--- NOTE | 2020-08-13 12:39 | NUR ---
PATIENT UNABLE TO STOP CRYING, WILL NOT CALM DOWN, WHEN MEDS GIVEN SHE FALLS INTO A DEEP SLEEP AND HAS TO BE WOKE UP TO BE REMINDED TO BREATH, THIS HAS BEEN HER CONTINUED RESPONSE SINCE ARRIVAL SO FAR.
--- NOTE | 2020-08-13 12:50 | NUR ---
Received report from Cecil in recovery.
--- NOTE | 2020-08-13 12:50 | NUR ---
PATIENT A&OX4, 6/10 PAIN SEE EMAR, V/S WNL, SCD ON, 20G TO RUE, LAP SURGICAL SITES TO ABDOMEN CDI. PATIENT TAKEN TO SURGICAL AND PLACED ON MONITORS WITH CONTINOUS PULSE OX AND O2, STARTING TO CALM DOWN SLIGHTLY. REPORT GIVEN TO RN WHO HAS TAKEN OVER PATIENT CARE.
--- NOTE | 2020-08-13 12:54 | NUR ---
BG 160
[2020-08-13] MEDS: propranolol 10mg tablet PO SCH ×2 (13:00→21:00)
[2020-08-13] MEDS: HYDROcodone/acetaminophen 10/325mg tab PO PRN (14:36)
--- NOTE | 2020-08-13 15:08 | NUR ---
Patient appears to be sleeping comfortably but will wake up whimpering and crying stating in pain but will fall back asleep. Patient again waken up whimpering and stating in extreme pain 12/13. Patient back to sleep after pain med given. Spouse at bedside. Patient is now on 2LNC spo2 96%, vss. Will continue to monitor.
--- NOTE | 2020-08-13 18:49 | NUR ---
[place] documentation: I have reviewed and agree with all interventions, assessments performed and documented by LOURDES Oneill. [place] Medication Administration: For this medication-pass time frame, all medication were reviewed, dispensed, administered and documented per hospital policy by LOURDES Oneill.
--- NOTE | 2020-08-13 18:51 | NUR ---
Patient in room [facility] 340. I have received report from JAREN FREED AND YUSUF FREED and had the opportunity to ask questions and assume patient care.
--- NOTE | 2020-08-13 18:54 | NUR ---
Problems reprioritized. Patient report given, questions answered & plan of care reviewed with LOURDES Davis.
[2020-08-14 00:09] VITALS: BP 105/69
[2020-08-14] MEDS: normal saline 1000ml 1,000 ML IV SCH ×2 (00:29→10:22)
[2020-08-14] MEDS: ondansetron/PF 4mg/2ml inj IV PRN ×2 (02:27→08:06)
[2020-08-14] MEDS: morphine 2 MG/ML inj. syringe IV PRN (02:28)
[2020-08-14] MEDS: LORazepam 2 mg/ml vial IV PRN (02:59)
[2020-08-14] MEDS: HYDROcodone/acetaminophen 10/325mg tab PO PRN ×2 (04:30→08:53)
[2020-08-14 06:17] LABS: BASOPHILS % (AUTO) 0.5 % (0-1); EOSINOPHILS % (AUTO) 0 % (0-6); HEMATOCRIT 37.8 % (35.0-45.0); HEMOGLOBIN 12.2 g/dl (12.0-16.0); LYMPHOCYTES # (AUTO) 1.6 X10'3 (1.1-4.8); LYMPHOCYTES % (AUTO) 15.7 % (21-51); MEAN CORPUSCULAR HEMOGLOBIN 27.8 PG (27.0-31.0); MEAN CORPUSCULAR HGB CONC 32.3 g/dL (33.0-36.5); MEAN CORPUSCULAR VOLUME 86.1 FL (78-98); MEAN PLATELET VOLUME 10.7 FL (7.4-10.4); MONOCYTES # (AUTO) 0.7 X10'3 (0-0.9); MONOCYTES % (AUTO) 7.3 % (2-12); NEUTROPHILS # (AUTO) 7.7 X10'3 (1.8-7.7); NEUTROPHILS % (AUTO) 76.5 % (42-75); PLATELET COUNT 225 X10'3 (140-440); RED BLOOD COUNT 4.39 X10'6 (4.20-5.60); RED CELL DISTRIBUTION WIDTH 13.5 % (11.5-14.5)
[2020-08-14 06:28] LABS: ALBUMIN 2.7 G/DL (3.4-5.0); ANION GAP 16 (8-16); BLOOD UREA NITROGEN 8 MG/DL (7-18); BUN/CREATININE RATIO 11.1 (6.6-38.0); CALCIUM 8.7 MG/DL (8.5-10.1); CHLORIDE 103 MMOL/L (99-107); CREATININE 0.72 MG/DL (0.40-0.90); GLUCOSE 332 MG/DL (70-104); MAGNESIUM 1.9 MG/DL (1.5-2.4); POTASSIUM 4.6 MMOL/L (3.5-5.1); SODIUM 134 MMOL/L (135-145); eGFR > 90 ML/MIN
--- NOTE | 2020-08-14 06:32 | NUR ---
Problems reprioritized. Patient report given, questions answered & plan of care reviewed with JAREN FREED/GÉNESIS FREED.
--- NOTE | 2020-08-14 06:40 | NUR ---
Patient in room [facility] 340. I have received report from LOURDES Davis and had the opportunity to ask questions and assume patient care.
--- NOTE | 2020-08-14 07:03 | NUR ---
PAGER ID: [phone] MESSAGE: Mai Ni [phone] - Cari Idalia - Room 340A - Conflicting dietary orders, please clarify if patient is Full Liquids or NPO diet. Thank you.
[2020-08-14] MEDS: pantoprazole 40 MG vial IV SCH (07:56)
[2020-08-14] MEDS: magnesium oxide 400mg tablet PO SCH (07:57)
[2020-08-14 08:00] VITALS: BP 109/67
[2020-08-14] MEDS ORDERED: DROSPIRENONE PO SCH (08:00)
[2020-08-14] MEDS ORDERED: ETHINYL ESTRADIOL PO SCH (08:00)
[2020-08-14] MEDS ORDERED: clonazePAM 1mg tablet PO SCH (08:00)
[2020-08-14] MEDS ORDERED: venlafaxine 25mg tablet PO SCH (08:00)
[2020-08-14] MEDS ORDERED: hydrOXYzine 25 MG tablet PO SCH (08:00)
[2020-08-14] MEDS ORDERED: buPROPion SR 150mg tablet PO SCH (08:00)
[2020-08-14] MEDS ORDERED: atorvastatin 10mg tablet PO SCH (08:00)
[2020-08-14] MEDS ORDERED: CefTRIAXone 2gm/D5W 50ml BAG 50 ML IV SCH (08:00)
[2020-08-14] MEDS ORDERED: lisinopril 5mg tablet PO SCH (08:00)
[2020-08-14] MEDS: K and/or MAG REPLACEMENT MC SCH (08:00)
[2020-08-14] MEDS: propranolol 10mg tablet PO SCH (08:06)
[2020-08-14] MEDS: insulin Lispro (HumaLOG) vial - multi-dose SQ SCH (10:18)
--- NOTE | 2020-08-14 10:52 | NUR ---
[place] documentation: I have reviewed and agree with all interventions, assessments performed and documented by LOURDES Oneill . [place] Medication Administration: For this medication-pass time frame, all medication were reviewed, dispensed, administered and documented per hospital policy by LOURDES Oneill .
[2020-08-14] MEDS ORDERED: HYDR-3965 PO (11:03)
[2020-08-14] MEDS ORDERED: SODI650T29 PO (11:03)
[2020-08-14] MEDS ORDERED: DOCU-148 PO (11:03)
--- NOTE | 2020-08-14 11:04 | NUR ---
PAGER ID: [phone] MESSAGE: Mai Last [phone] - Cari Friedman - Room 340A - Patient request antiemetic to go home. Possibly Zofran?
[2020-08-14] MEDS ORDERED: ONDA4TAB6 PO (11:40)
--- NOTE | 2020-08-14 12:00 | NUR ---
Duplicate orders for [place] scripts for the patient. Patient was sent with the paper script for [place] and the escript for [place] to [facility] on [address] was cancelled by phone by pharmacist Hi.
--- NOTE | 2020-08-14 12:16 | NUR ---
DM Consult: A1C 7.9; pt in process of discharging during RD visit. Written DM ed w/ RD contact information given to RN to be placed w/ pt information packet. Addendum: 08/14/20 at [address] Amended: Links added.
--- NOTE | 2020-08-14 12:55 | NUR ---
Patient discharged to home accompanied by her in a private vehicle. Patient was able to ambulate on her own to the front of the hospital without aid. Patient cleaned her own room and packed her belongings. Patient has been very emotional and had high levels of anxiety this hospital stay. Patient was given discharge instructions and the opportunity to ask questions and have them answered. Dr Grimes came by and advised the patient of the need to ambulate to aid in healing. Patient has been reluctant to ambulate due to pain. Patient left with all belongings and was alert and oriented for transfer to home. Patient left with paper script for [facility] .
== END 2020-08-14 12:02 | disposition home or self-care (01) | DRG 418 ==
LOC: ER 22:37 → ED HOLD 08-13 03:30 → SUR 3N 08-13 04:20
PROVIDERS: ADMIT Internal Medicine; ATTEND Internal Medicine
PROC: BF532Z0 Other Imaging of Gallbladder and Bile Ducts using Fluorescing Agent, Intraoperative (ICD-10-PCS; 2020-08-13)
PROC: 8E0W4CZ Robotic Assisted Procedure of Trunk Region, Percutaneous Endoscopic Approach (ICD-10-PCS; 2020-08-13)
PROC: 0FT44ZZ Resection of Gallbladder, Percutaneous Endoscopic Approach (ICD-10-PCS; principal; 2020-08-13 10:22)
DX: K80.00 Calculus of gallbladder with acute cholecystitis without obstruction (principal); Z68.41 Body mass index [BMI] 40.0-44.9, adult; E10.65 Type 1 diabetes mellitus with hyperglycemia; E78.5 Hyperlipidemia, unspecified; F32.9 Major depressive disorder, single episode, unspecified; Z20.822 Contact with and (suspected) exposure to COVID-19; F41.0 Panic disorder [episodic paroxysmal anxiety]; R16.0 Hepatomegaly, not elsewhere classified; I10 Essential (primary) hypertension; K21.9 Gastro-esophageal reflux disease without esophagitis; K82.8 Other specified diseases of gallbladder; Z96.41 Presence of insulin pump (external) (internal); E66.01 Morbid (severe) obesity due to excess calories; Z79.4 Long term (current) use of insulin; Z88.2 Allergy status to sulfonamides; Z79.899 Other long term (current) drug therapy
CPT/HCPCS: 36415; 80048; 80053; 81001; 81003; 81025; 82150; 82948; 83036; 83605; 83690; 83735; 85025; 87081; 87635; 99285; A4215; A4618; A7000; C9113; G0378; J0131; J0690; J0696; J1100; J1815; J2001; J2060; J2175; J2250; J2270; J2405; J2704; J3010; J3490; J7030; J7120; Q0177

== ENCOUNTER 2021-04-17 21:08 | Emergency (ER) | payer BC ==
[~2021-04-17] VITALS: Ht 160 cm; Wt 109.0 kg
[~2021-04-17 21:08] MED LIST changes: +ATOR10TA87 PO; +BUPR-317 PO; -BUPR150T8 PO; +CLON-527 PO; +DESV50TA10 PO; -DIAZ10TA PO; +DOCU-148 PO; +HYDR-3686 PO; -INSU100V46; -LORA-269 PO; +MAGN100T PO; +OMEP40CA21 PO; +ONDA4TAB6 PO; -PARO10TA85 PO; +SODI650T29 PO; +VILA10TA PO; -VILA40TA PO
[2021-04-17] MEDS ORDERED: ondansetron 4mg rapidly disintigrating tab PO ONE (22:50)
[2021-04-17 23:10] LABS: BASOPHILS # (AUTO) 0.1 X10'3 (0-0.2); BASOPHILS % (AUTO) 1.1 % (0-1); EOSINOPHILS # (AUTO) 0.1 X10'3 (0-0.9); EOSINOPHILS % (AUTO) 1.5 % (0-6); HEMATOCRIT 39.6 % (35.0-45.0); HEMOGLOBIN 13.1 g/dl (12.0-16.0); LYMPHOCYTES % (AUTO) 31.6 % (21-51); MEAN CORPUSCULAR HEMOGLOBIN 26.9 PG (27.0-31.0); MEAN CORPUSCULAR HGB CONC 33.2 g/dL (33.0-36.5); MEAN PLATELET VOLUME 9.8 FL (7.4-10.4); MONOCYTES # (AUTO) 0.9 X10'3 (0-0.9); MONOCYTES % (AUTO) 9.6 % (2-12); NEUTROPHILS # (AUTO) 5.4 X10'3 (1.8-7.7); NEUTROPHILS % (AUTO) 56.2 % (42-75); PLATELET COUNT 269 X10'3 (140-440); RED BLOOD COUNT 4.89 X10'6 (4.20-5.60); RED CELL DISTRIBUTION WIDTH 13.6 % (11.5-14.5); WHITE BLOOD COUNT 9.5 X10'3 (4.5-11.0)
[2021-04-17 23:29] LABS: ALANINE AMINOTRANSFERASE 27 U/L (12-78); ALBUMIN 3.1 G/DL (3.4-5.0); ALBUMIN/GLOBULIN RATIO 0.7 (1.1-1.5); ALKALINE PHOSPHATASE 139 IU/L (46-116); ANION GAP 11 (8-16); ASPARTATE AMINO TRANSFERASE 14 U/L (10-37); BILIRUBIN,TOTAL 0.2 MG/DL (0.1-1.0); BLOOD UREA NITROGEN 13 MG/DL (7-18); CALCIUM 9.2 MG/DL (8.5-10.1); CHLORIDE 101 MMOL/L (99-107); CREATININE 0.81 MG/DL (0.40-0.90); GLUCOSE 239 MG/DL (70-104); LIPASE < 50 U/L (73-393); POTASSIUM 4.3 MMOL/L (3.5-5.1); SODIUM 136 MMOL/L (135-145); TOTAL CARBON DIOXIDE 23.6 MMOL/L (24-32); TOTAL PROTEIN 7.6 G/DL (6.4-8.2); eGFR 84 ML/MIN
[2021-04-18 05:24] LABS: URINE HCG NEGATIVE (NEG)
[2021-04-18] MEDS ORDERED: ondansetron 4mg rapidly disintigrating tab PO ONE (05:25)
[2021-04-18 05:27] LABS: CLARITY,URINE SLIGHTLY CLOUDY (Clear); COLOR,URINE YELLOW (Yellow); GLUCOSE, URINE 100 mg/dl (Neg); KETONES,URINE 40 mg/dl (Neg); LEUKOCYTE ESTERASE ,URINE NEGATIVE (Neg); NITRITES, URINE NEGATIVE (Neg); OCCULT BLOOD,URINE NEGATIVE (Neg); PROTEIN,URINE NEGATIVE (Neg); UROBILINOGEN,URINE 0.2 E.U/dL (0.2-1.0)
[2021-04-18 05:35] LABS: UA COLLECTION TYPE CLN CATCH MIDSTREAM
[2021-04-18 05:40] LABS: BACTERIA,URINE 2+ /HPF (Neg); RBC,URINE 0-2 /HPF (0-2)
[2021-04-18 05:41] LABS: WBC CLUMPS,URINE FEW /HPF (NEGATIVE)
[2021-04-18 05:42] LABS: SQUAMOUS EPITHELIAL CELL,UR MODERATE /LPF (FEW)
[2021-04-18] MEDS ORDERED: cephalexin 250mg capsule PO ONE (06:30)
[2021-04-18] MEDS ORDERED: NITR100C6 PO (07:28)
[2021-04-18 07:35] VITALS: BP 117/70
== END 2021-04-18 07:39 | disposition home or self-care (01) ==
LOC: ER 21:08 → EEVIPCON 21:08 → ER 04-18 07:39
DX: E11.65 Type 2 diabetes mellitus with hyperglycemia (principal); N39.0 Urinary tract infection, site not specified; F41.9 Anxiety disorder, unspecified; Z88.0 Allergy status to penicillin; Z79.899 Other long term (current) drug therapy
CPT/HCPCS: 36415; 76700; 80053; 81001; 81025; 82948; 83690; 85025; 87088; 93005; 99285

== ENCOUNTER 2021-05-14 16:19 | Emergency (ER) | payer BC ==
[~2021-05-14] VITALS: Ht 160 cm; Wt 109.0 kg
[~2021-05-14 16:19] MED LIST changes: +NITR100C6 PO
[2021-05-14 16:27] VITALS: BP 157/79
[2021-05-14] MEDS ORDERED: diphenhydrAMINE 50 mg/ml inj IV ONE (16:55)
[2021-05-14] MEDS ORDERED: normal saline 1000ML IV soln IVB ONE ×2 (16:55→17:50)
[2021-05-14] MEDS ORDERED: proCHLORperazine 10 MG/2 ml inj IV ONE (16:55)
[2021-05-14 16:58] LABS: BASOPHILS # (AUTO) 0.1 X10'3 (0-0.2); BASOPHILS % (AUTO) 0.7 % (0-1); EOSINOPHILS # (AUTO) 0.1 X10'3 (0-0.9); EOSINOPHILS % (AUTO) 0.6 % (0-6); HEMATOCRIT 41.9 % (35.0-45.0); HEMOGLOBIN 13.6 g/dl (12.0-16.0); LYMPHOCYTES # (AUTO) 2.4 X10'3 (1.1-4.8); LYMPHOCYTES % (AUTO) 20.1 % (21-51); MEAN CORPUSCULAR HEMOGLOBIN 26.4 PG (27.0-31.0); MEAN CORPUSCULAR HGB CONC 32.5 g/dL (33.0-36.5); MEAN CORPUSCULAR VOLUME 81.2 FL (78-98); MEAN PLATELET VOLUME 9.8 FL (7.4-10.4); MONOCYTES # (AUTO) 0.9 X10'3 (0-0.9); MONOCYTES % (AUTO) 7.3 % (2-12); NEUTROPHILS # (AUTO) 8.7 X10'3 (1.8-7.7); NEUTROPHILS % (AUTO) 71.3 % (42-75); PLATELET COUNT 290 X10'3 (140-440); RED BLOOD COUNT 5.16 X10'6 (4.20-5.60); RED CELL DISTRIBUTION WIDTH 13.9 % (11.5-14.5); WHITE BLOOD COUNT 12.2 X10'3 (4.5-11.0)
[2021-05-14 17:10] LABS: ALANINE AMINOTRANSFERASE 33 U/L (12-78); ALBUMIN 3.3 G/DL (3.4-5.0); ALBUMIN/GLOBULIN RATIO 0.8 (1.1-1.5); ALKALINE PHOSPHATASE 131 IU/L (46-116); ANION GAP 19 (8-16); ASPARTATE AMINO TRANSFERASE 25 U/L (10-37); BILIRUBIN,TOTAL 0.5 MG/DL (0.1-1.0); BLOOD UREA NITROGEN 12 MG/DL (7-18); BUN/CREATININE RATIO 14.8 (6.6-38.0); CALCIUM 8.9 MG/DL (8.5-10.1); CHLORIDE 99 MMOL/L (99-107); CREATININE 0.81 MG/DL (0.40-0.90); GLUCOSE 151 MG/DL (70-104); LIPASE < 50 U/L (73-393); POTASSIUM 4.1 MMOL/L (3.5-5.1); SODIUM 136 MMOL/L (135-145); TOTAL CARBON DIOXIDE 17.7 MMOL/L (24-32); TOTAL PROTEIN 7.7 G/DL (6.4-8.2); eGFR 84 ML/MIN
[2021-05-14 17:17] LABS: CLARITY,URINE CLEAR (Clear); COLOR,URINE YELLOW (Yellow); GLUCOSE, URINE >=1000 mg/dl (Neg); KETONES,URINE >=80 mg/dl (Neg); LEUKOCYTE ESTERASE ,URINE NEGATIVE (Neg); NITRITES, URINE NEGATIVE (Neg); OCCULT BLOOD,URINE NEGATIVE (Neg); PH,URINE 5.5 (4.8-8.0); PROTEIN,URINE NEGATIVE (Neg); UA COLLECTION TYPE CLN CATCH MIDSTREAM; UROBILINOGEN,URINE 0.2 E.U/dL (0.2-1.0)
[2021-05-14 17:18] LABS: URINE HCG NEGATIVE (NEG)
[2021-05-14 17:24] LABS: BACTERIA,URINE FEW /HPF (Neg); MUCUS STRANDS NONE SEEN /LPF (Neg); RBC,URINE NONE SEEN /HPF (0-2); SQUAMOUS EPITHELIAL CELL,UR FEW /LPF (FEW); WBC,URINE 0-4 /HPF (0-4)
[2021-05-14] MEDS ORDERED: LORazepam 2 mg/ml vial IV ONE (17:45)
[2021-05-14] MEDS ORDERED: haloperidol lactate 5mg/ml inj IM ONE (18:05)
[2021-05-14] MEDS ORDERED: PROC-8 PO (19:05)
== END 2021-05-14 19:45 | disposition home or self-care (01) ==
LOC: ER 16:20
DX: E10.65 Type 1 diabetes mellitus with hyperglycemia (principal); Z88.2 Allergy status to sulfonamides; Z79.899 Other long term (current) drug therapy
CPT/HCPCS: 36415; 80053; 81001; 81025; 83690; 85025; 96361; 96374; 96375; 99284; J0780; J1200; J2060; J7030

== ENCOUNTER 2021-05-16 08:48 | Outpatient (CLI) | payer BC ==
[~2021-05-16 08:48] MED LIST changes: +PROC-8 PO
[2021-05-16 09:51] LABS: ALANINE AMINOTRANSFERASE 29 U/L (12-78); ALBUMIN 3.2 G/DL (3.4-5.0); ALBUMIN/GLOBULIN RATIO 0.7 (1.1-1.5); ALKALINE PHOSPHATASE 127 IU/L (46-116); ANION GAP 14 (8-16); ASPARTATE AMINO TRANSFERASE 20 U/L (10-37); BILIRUBIN,TOTAL 0.3 MG/DL (0.1-1.0); BLOOD UREA NITROGEN 9 MG/DL (7-18); BUN/CREATININE RATIO 12.7 (6.6-38.0); CALCIUM 8.9 MG/DL (8.5-10.1); CHLORIDE 103 MMOL/L (99-107); CREATININE 0.71 MG/DL (0.40-0.90); GLUCOSE 169 MG/DL (70-104); POTASSIUM 4.1 MMOL/L (3.5-5.1); SODIUM 138 MMOL/L (135-145); TOTAL CARBON DIOXIDE 21.3 MMOL/L (24-32); TOTAL PROTEIN 7.5 G/DL (6.4-8.2); eGFR > 90 ML/MIN
[2021-05-16 09:57] LABS: HEMOGLOBIN A1C 8.2 % (4.5-6.2)
[2021-05-16 10:00] LABS: CHOL/HDL RATIO 2.3 (0.00-4.99); CHOLESTEROL 157 MG/DL (0-200); HDL CHOLESTEROL 68 MG/DL (35-60); LDL CHOLESTEROL 62 MG/DL (50-100); LIPASE < 50 U/L (73-393); TRIGLYCERIDES 109 MG/DL (20-135)
[2021-05-17 11:10] LABS: C-PEPTIDE, SERUM <0.1 ng/mL (1.1-4.4); INSULIN <0.4 uIU/mL (2.6-24.9); MICROALB/CRT, RATIO <4 mg/g creat (0-29)
[2021-05-19 18:44] LABS: GAD-65 AUTOANTIBODY 230.7 U/mL (0.0-5.0)
== END 2021-05-16 23:59 | disposition home or self-care (01) ==
LOC: RAD 08:48 → EDSTATUS 10:00 → RAD 23:59
PROVIDERS: ATTEND Nurse Practitioner Family
DX: K30 Functional dyspepsia (principal); E10.65 Type 1 diabetes mellitus with hyperglycemia; E78.00 Pure hypercholesterolemia, unspecified; R11.0 Nausea; K21.9 Gastro-esophageal reflux disease without esophagitis
CPT/HCPCS: 36415; 78264; 80053; 80061; 82043; 82570; 83036; 83525; 83690; 84439; 84443; 84681; A9541

== ENCOUNTER 2021-05-17 20:43 | Emergency (ER) | payer BC ==
[~2021-05-17] VITALS: Ht 160 cm; Wt 107.2 kg
== END 2021-05-18 02:20 | disposition left against medical advice (07) ==
LOC: ER 20:43
DX: R11.0 Nausea (principal); Z53.21 Procedure and treatment not carried out due to patient leaving prior to being seen by health care provider
CPT/HCPCS: 82948

== ENCOUNTER 2021-05-27 00:32 | Emergency (ER) | payer BC ==
[~2021-05-27] VITALS: Ht 160 cm; Wt 106.8 kg
[2021-05-27 00:45] VITALS: BP 127/85
[2021-05-27] MEDS ORDERED: ondansetron 4mg rapidly disintigrating tab PO ONE (03:00)
== END 2021-05-27 05:31 | disposition home or self-care (01) ==
LOC: ER 00:32
DX: J02.9 Acute pharyngitis, unspecified (principal); R49.0 Dysphonia; R05.9 Cough, unspecified; E10.9 Type 1 diabetes mellitus without complications; Z88.2 Allergy status to sulfonamides; Z79.899 Other long term (current) drug therapy; Z20.822 Contact with and (suspected) exposure to COVID-19
CPT/HCPCS: 87081; 87635; 87880; 99283; C9803

== ENCOUNTER 2021-06-21 11:40 | Day surgery (SDC) | payer BC ==
[~2021-06-21] VITALS: Ht 157.5 cm; Wt 109.1 kg
[2021-06-21 11:49] VITALS: BP 137/85
[2021-06-21] MEDS ORDERED: METO-542 PO (12:02)
[2021-06-21] MEDS ORDERED: WEL625T PO (12:03)
[2021-06-21] MEDS ORDERED: PARO25TA17 PO (12:04)
[2021-06-21] MEDS ORDERED: ETHI1TAB30 PO (12:05)
[2021-06-21] MEDS ORDERED: DOCU-148 PO (12:06)
[2021-06-21] MEDS ORDERED: fentaNYL/PF 50MCG/1 ML 2ML syringe ONE (12:07)
[2021-06-21] MEDS ORDERED: LIDOcaine Viscous 15ml cup ONE (12:07)
[2021-06-21] MEDS ORDERED: CHOL20004 PO (12:07)
[2021-06-21] MEDS ORDERED: MIDAZolam 1 MG/ML 5ML VIAL ONE (12:07)
[2021-06-21] MEDS ORDERED: ONDA4FIL5 (12:09)
[2021-06-21] MEDS ORDERED: INSU100V43 SQ (12:11)
[2021-06-21 13:15] VITALS: BP 128/68
[2021-06-21 13:25] VITALS: BP 108/58
[2021-06-21 13:35] VITALS: BP 106/72
[2021-06-21 13:45] VITALS: BP 121/75
== END 2021-06-21 13:50 | disposition home or self-care (01) ==
LOC: GI LAB 11:40
PROVIDERS: ATTEND Internal Medicine Gastroenterology
DX: R11.0 Nausea (principal); K29.50 Unspecified chronic gastritis without bleeding; I10 Essential (primary) hypertension; E78.5 Hyperlipidemia, unspecified; E10.9 Type 1 diabetes mellitus without complications; Z88.2 Allergy status to sulfonamides; Z79.899 Other long term (current) drug therapy
CPT/HCPCS: 43239; J2250; J3010; J7040; Z7512; 99152; A4620

== ENCOUNTER 2021-07-05 06:18 | Emergency (ER) | payer BC ==
[~2021-07-05] VITALS: Ht 160 cm; Wt 109.5 kg
[~2021-07-05 06:18] MED LIST changes: -BUPR-317 PO; +CHOL20004 PO; -DESV50TA10 PO; -ETHI1TAB20 PO; +ETHI1TAB30 PO; -HYDR-3686 PO; +INSU100V43 SQ; +METO-542 PO; -NITR100C6 PO; -OMEP40CA21 PO; +ONDA4FIL5; -ONDA4TAB6 PO; +PARO25TA17 PO; -PROC-8 PO; -SODI650T29 PO; -VILA10TA PO; +WEL625T PO
[2021-07-05 06:23] VITALS: BP 119/74
[2021-07-05] MEDS ORDERED: diazepam 5mg tablet PO ONE (07:15)
== END 2021-07-05 07:52 | disposition home or self-care (01) ==
LOC: ER 06:19
DX: F41.9 Anxiety disorder, unspecified (principal); T45.0X5A Adverse effect of antiallergic and antiemetic drugs, initial encounter; R45.1 Restlessness and agitation; R11.0 Nausea; E11.9 Type 2 diabetes mellitus without complications; Z88.2 Allergy status to sulfonamides; Z79.899 Other long term (current) drug therapy; Z79.4 Long term (current) use of insulin; Y92.89 Other specified places as the place of occurrence of the external cause
CPT/HCPCS: 99283

== ENCOUNTER 2021-07-12 03:38 | Emergency (ER) | payer BC ==
[~2021-07-12] VITALS: Ht 160 cm; Wt 109.0 kg
[2021-07-12] MEDS ORDERED: metoclopramide 5 mg/ml inj IV ONE ×2 (04:30→06:10)
[2021-07-12] MEDS ORDERED: normal saline 1000ML IV soln IVB ONE ×2 (04:30→06:10)
[2021-07-12] MEDS ORDERED: normal saline 1000ml 1,000 ML IV ONE (04:30)
[2021-07-12] MEDS ORDERED: morphine 2 MG/ML inj. syringe IV PRN (04:30)
[2021-07-12] MEDS ORDERED: LORazepam 2 mg/ml vial IV ONE (04:50)
[2021-07-12 05:31] LABS: COLOR,URINE YELLOW (Yellow); GLUCOSE, URINE NEGATIVE (Neg); KETONES,URINE NEGATIVE (Neg); LEUKOCYTE ESTERASE ,URINE NEGATIVE (Neg); NITRITES, URINE NEGATIVE (Neg); OCCULT BLOOD,URINE NEGATIVE (Neg); PROTEIN,URINE NEGATIVE (Neg); UROBILINOGEN,URINE 0.2 E.U/dL (0.2-1.0)
[2021-07-12 05:35] LABS: BASOPHILS # (AUTO) 0.1 X10'3 (0-0.2); BASOPHILS % (AUTO) 0.7 % (0-1); EOSINOPHILS # (AUTO) 0.2 X10'3 (0-0.9); EOSINOPHILS % (AUTO) 1.8 % (0-6); HEMATOCRIT 39.1 % (35.0-45.0); HEMOGLOBIN 13.1 g/dl (12.0-16.0); LYMPHOCYTES # (AUTO) 1.4 X10'3 (1.1-4.8); LYMPHOCYTES % (AUTO) 11.8 % (21-51); MEAN CORPUSCULAR HEMOGLOBIN 26.4 PG (27.0-31.0); MEAN CORPUSCULAR HGB CONC 33.6 g/dL (33.0-36.5); MEAN CORPUSCULAR VOLUME 78.6 FL (78-98); MEAN PLATELET VOLUME 10.1 FL (7.4-10.4); MONOCYTES # (AUTO) 1.1 X10'3 (0-0.9); MONOCYTES % (AUTO) 9.3 % (2-12); NEUTROPHILS # (AUTO) 9.4 X10'3 (1.8-7.7); NEUTROPHILS % (AUTO) 76.4 % (42-75); PLATELET COUNT 228 X10'3 (140-440); RED BLOOD COUNT 4.97 X10'6 (4.20-5.60); RED CELL DISTRIBUTION WIDTH 14.3 % (11.5-14.5); WHITE BLOOD COUNT 12.3 X10'3 (4.5-11.0)
[2021-07-12 05:39] LABS: BACTERIA,URINE 2+ /HPF (Neg); CLARITY,URINE SLIGHTLY CLOUDY (Clear); MUCUS STRANDS MODERATE /LPF (Neg); RBC,URINE NONE SEEN /HPF (0-2); SQUAMOUS EPITHELIAL CELL,UR MANY /LPF (FEW); UA COLLECTION TYPE NON-SPECIFIED; WBC,URINE 0-4 /HPF (0-4)
[2021-07-12 05:41] LABS: ALANINE AMINOTRANSFERASE 31 U/L (12-78); ALBUMIN 3.1 G/DL (3.4-5.0); ALBUMIN/GLOBULIN RATIO 0.7 (1.1-1.5); ALKALINE PHOSPHATASE 121 IU/L (46-116); ANION GAP 10 (8-16); ASPARTATE AMINO TRANSFERASE 16 U/L (10-37); BILIRUBIN,TOTAL 0.3 MG/DL (0.1-1.0); BLOOD UREA NITROGEN 11 MG/DL (7-18); BUN/CREATININE RATIO 15.7 (6.6-38.0); CALCIUM 8.6 MG/DL (8.5-10.1); CHLORIDE 104 MMOL/L (99-107); GLUCOSE 162 MG/DL (70-104); LIPASE < 50 U/L (73-393); MAGNESIUM 1.6 MG/DL (1.5-2.4); SODIUM 137 MMOL/L (135-145); TOTAL CARBON DIOXIDE 22.7 MMOL/L (24-32); TOTAL PROTEIN 7.3 G/DL (6.4-8.2); eGFR > 90 ML/MIN
[2021-07-12] MEDS ORDERED: ketorolac tromethamine 15mg/ml inj. IV ONE (06:10)
[2021-07-12 06:15] VITALS: BP 112/67
== END 2021-07-12 06:53 | disposition home or self-care (01) ==
LOC: ER 03:39
DX: K31.84 Gastroparesis (principal); R10.84 Generalized abdominal pain; E11.9 Type 2 diabetes mellitus without complications; F41.9 Anxiety disorder, unspecified; Z88.2 Allergy status to sulfonamides; Z79.4 Long term (current) use of insulin; Z79.899 Other long term (current) drug therapy
CPT/HCPCS: 36415; 80053; 81001; 83690; 83735; 85025; 96361; 96374; 96375; 96376; 99284; J1885; J2060; J2765; J7030

== ENCOUNTER 2021-08-30 08:50 | Emergency (ER) | payer BC ==
[~2021-08-30] VITALS: Ht 160 cm; Wt 109.1 kg
[2021-08-30 10:09] LABS: CLARITY,URINE CLEAR (Clear); COLOR,URINE YELLOW (Yellow); GLUCOSE, URINE 100 mg/dl (Neg); KETONES,URINE NEGATIVE (Neg); LEUKOCYTE ESTERASE ,URINE NEGATIVE (Neg); NITRITES, URINE NEGATIVE (Neg); OCCULT BLOOD,URINE NEGATIVE (Neg); PH,URINE 6.5 (4.8-8.0); PROTEIN,URINE NEGATIVE (Neg); UROBILINOGEN,URINE 0.2 E.U/dL (0.2-1.0)
[2021-08-30 10:11] LABS: UA COLLECTION TYPE CLN CATCH MIDSTREAM
[2021-08-30 10:24] LABS: BASOPHILS # (AUTO) 0.1 X10'3 (0-0.2); BASOPHILS % (AUTO) 0.8 % (0-1); EOSINOPHILS # (AUTO) 0.3 X10'3 (0-0.9); EOSINOPHILS % (AUTO) 3.4 % (0-6); HEMATOCRIT 39.7 % (35.0-45.0); LYMPHOCYTES # (AUTO) 2.1 X10'3 (1.1-4.8); LYMPHOCYTES % (AUTO) 24.5 % (21-51); MEAN CORPUSCULAR HGB CONC 32.7 g/dL (33.0-36.5); MEAN CORPUSCULAR VOLUME 79.4 FL (78-98); MONOCYTES # (AUTO) 0.8 X10'3 (0-0.9); MONOCYTES % (AUTO) 8.7 % (2-12); NEUTROPHILS # (AUTO) 5.5 X10'3 (1.8-7.7); NEUTROPHILS % (AUTO) 62.6 % (42-75); PLATELET COUNT 250 X10'3 (140-440); RED CELL DISTRIBUTION WIDTH 14.6 % (11.5-14.5); WHITE BLOOD COUNT 8.7 X10'3 (4.5-11.0)
[2021-08-30 10:34] LABS: ALANINE AMINOTRANSFERASE 24 U/L (12-78); ALBUMIN 2.9 G/DL (3.4-5.0); ALBUMIN/GLOBULIN RATIO 0.6 (1.1-1.5); ALKALINE PHOSPHATASE 123 IU/L (46-116); ANION GAP 8 (8-16); ASPARTATE AMINO TRANSFERASE 13 U/L (10-37); BILIRUBIN,TOTAL 0.2 MG/DL (0.1-1.0); BLOOD UREA NITROGEN 10 MG/DL (7-18); BUN/CREATININE RATIO 13.9 (6.6-38.0); CALCIUM 8.8 MG/DL (8.5-10.1); CHLORIDE 103 MMOL/L (99-107); CREATININE 0.72 MG/DL (0.40-0.90); GLUCOSE 168 MG/DL (70-104); POTASSIUM 4.1 MMOL/L (3.5-5.1); SODIUM 138 MMOL/L (135-145); TOTAL CARBON DIOXIDE 27.1 MMOL/L (24-32); TOTAL PROTEIN 7.6 G/DL (6.4-8.2); eGFR > 90 ML/MIN
[2021-08-30 10:38] LABS: HEMOGLOBIN A1C 8.1 % (4.5-6.2)
[2021-08-30] MEDS ORDERED: LORazepam 1 MG tablet PO PRN (10:40)
--- NOTE | 2021-08-30 10:51 | NUR ---
Pt brought over to the unit from ED. She is currently on a waiting for evaluation by [facility]. Pt states, "I'm not suicidial I just was having a moment." Pt's belongings collected and inventoried by drug abuse technician. Pt is gowns and green bottoms. Pt is now resting on her bed on her right side. RR even and unlabored. Will continue to monitor.
[2021-08-30 11:07] LABS: URINE AMPHETAMINE SCREEN NEGATIVE (Neg); URINE BARBITUATE SCREEN NEGATIVE (Neg); URINE BENZODIAZEPINES SCREEN NEGATIVE (Neg); URINE CANNABINOID SCREEN NEGATIVE (Neg); URINE COCAINE SCREEN NEGATIVE (Neg); URINE METHADONE SCREEN NEGATIVE (Neg); URINE OPIATE SCREEN NEGATIVE (Neg); URINE PHENCYCLIDINE SCREEN NEGATIVE (Neg)
[2021-08-30 12:00] VITALS: BP 124/83
--- NOTE | 2021-08-30 12:33 | NUR ---
Pt up for lunch. She is now resting on her right side. RR even and unlabored. Will continue to monitor.
--- NOTE | 2021-08-30 13:53 | NUR ---
pt speaking with schm at bedside.
--- NOTE | 2021-08-30 14:55 | NUR ---
Pt's ride will be here at 5pm. She will be discharged home. Pt is calm and cooperative. She has been resting on her right side. RR even and unlabored. Will continue to monitor.
--- NOTE | 2021-08-30 16:14 | NUR ---
Pt is awake resting on her bed. She is waiting for her discharge at 5pm.
--- NOTE | 2021-08-30 17:17 | NUR ---
Pt discharged home. Pt provided [facility] prevention referrals and services. Pt educated to make an appointment with her psychiatrist. picked up. All belongings returned to the pt. Discharge papers signed along with inventory sheet.
== END 2021-08-30 17:17 | disposition home or self-care (01) ==
LOC: ER 08:51 → EEVIPCON 08:51 → ER 17:17
DX: F32.A Depression, unspecified (principal); Z20.822 Contact with and (suspected) exposure to COVID-19; R41.82 Altered mental status, unspecified; F41.9 Anxiety disorder, unspecified; E10.9 Type 1 diabetes mellitus without complications; Z88.2 Allergy status to sulfonamides; Z79.899 Other long term (current) drug therapy; Z79.4 Long term (current) use of insulin
CPT/HCPCS: 36415; 80053; 80305; 81003; 82948; 83036; 85025; 87635; 99285; C9803

== ENCOUNTER 2021-09-01 10:56 | Inpatient (IN) | payer BC ==
[~2021-09-01] VITALS: Ht 160 cm; Wt 125.0 kg
--- NOTE | 2021-09-01 11:38 | NUR ---
PER PT REQUEST PHONE CALL TO SUP. ADRIAN TO LET HER KNOW SHE WAS BEING SEEN SO SHE WOULD NOT MAKE THE MEETING. MESSAGE LEFT AND PT UPDATED WITH INFO.
[2021-09-01] MEDS ORDERED: clonazePAM 1mg tablet PO ONE ×2 (11:55→19:50)
[2021-09-01 13:03] LABS: URINE HCG NEGATIVE (NEG)
[2021-09-01 13:09] LABS: BASOPHILS % (AUTO) 0.5 % (0-1); EOSINOPHILS # (AUTO) 0.3 X10'3 (0-0.9); EOSINOPHILS % (AUTO) 3.3 % (0-6); HEMATOCRIT 39.3 % (35.0-45.0); HEMOGLOBIN 12.9 g/dl (12.0-16.0); LYMPHOCYTES # (AUTO) 2.6 X10'3 (1.1-4.8); LYMPHOCYTES % (AUTO) 27.7 % (21-51); MEAN CORPUSCULAR HEMOGLOBIN 26.2 PG (27.0-31.0); MEAN CORPUSCULAR HGB CONC 32.8 g/dL (33.0-36.5); MEAN CORPUSCULAR VOLUME 79.7 FL (78-98); MEAN PLATELET VOLUME 9.9 FL (7.4-10.4); MONOCYTES # (AUTO) 0.7 X10'3 (0-0.9); MONOCYTES % (AUTO) 7.1 % (2-12); NEUTROPHILS # (AUTO) 5.8 X10'3 (1.8-7.7); NEUTROPHILS % (AUTO) 61.4 % (42-75); PLATELET COUNT 250 X10'3 (140-440); RED BLOOD COUNT 4.93 X10'6 (4.20-5.60); RED CELL DISTRIBUTION WIDTH 14.3 % (11.5-14.5); WHITE BLOOD COUNT 9.4 X10'3 (4.5-11.0)
[2021-09-01 13:14] LABS: URINE AMPHETAMINE SCREEN NEGATIVE (Neg); URINE BARBITUATE SCREEN NEGATIVE (Neg); URINE BENZODIAZEPINES SCREEN NEGATIVE (Neg); URINE CANNABINOID SCREEN NEGATIVE (Neg); URINE COCAINE SCREEN NEGATIVE (Neg); URINE METHADONE SCREEN NEGATIVE (Neg); URINE OPIATE SCREEN NEGATIVE (Neg); URINE PHENCYCLIDINE SCREEN NEGATIVE (Neg)
[2021-09-01 13:26] LABS: ALANINE AMINOTRANSFERASE 27 U/L (12-78); ALBUMIN 2.9 G/DL (3.4-5.0); ALBUMIN/GLOBULIN RATIO 0.7 (1.1-1.5); ALKALINE PHOSPHATASE 114 IU/L (46-116); ANION GAP 6 (8-16); ASPARTATE AMINO TRANSFERASE 20 U/L (10-37); BILIRUBIN,TOTAL 0.2 MG/DL (0.1-1.0); BLOOD UREA NITROGEN 8 MG/DL (7-18); BUN/CREATININE RATIO 11.3 (6.6-38.0); CALCIUM 8.6 MG/DL (8.5-10.1); CHLORIDE 105 MMOL/L (99-107); CREATININE 0.71 MG/DL (0.40-0.90); GLUCOSE 138 MG/DL (70-104); POTASSIUM 3.8 MMOL/L (3.5-5.1); SODIUM 138 MMOL/L (135-145); TOTAL CARBON DIOXIDE 27.3 MMOL/L (24-32); TOTAL PROTEIN 7.2 G/DL (6.4-8.2); eGFR > 90 ML/MIN
[2021-09-01 13:27] LABS: ETHANOL < 0.010 GM/DL (0.0-0.010)
--- NOTE | 2021-09-01 14:32 | NUR ---
PACKET FAXED TO [facility]
--- NOTE | 2021-09-01 14:32 | NUR ---
PT RESTING IN BED
[2021-09-01] MEDS ORDERED: PANT40TA54 PO (14:52)
[2021-09-01] MEDS ORDERED: BREX0.5T PO (14:52)
[2021-09-01] MEDS ORDERED: ETHI1TAB20 PO (14:52)
[2021-09-01] MEDS ORDERED: INSU100I8 SQ (14:52)
[2021-09-01] MEDS ORDERED: CHOL20002 PO (14:52)
[2021-09-01] MEDS ORDERED: ONDA4TAB12 PO (14:52)
--- NOTE | 2021-09-01 16:35 | NUR ---
PT RESTING IN BED WITH EYES CLOSED
--- NOTE | 2021-09-01 17:23 | NUR ---
REPORT GIVEN TO DALJIT FREED
[2021-09-01] MEDS ORDERED: metoclopramide 10mg/10 ml UD oral solution PO STA ×2 (18:08→18:20)
--- NOTE | 2021-09-01 18:20 | NUR ---
Told during report that belongings are over on overflow side.
--- NOTE | 2021-09-01 20:30 | NUR ---
late note:Nurse spoke with Dr Becker about pt having her insulin pump left on as pt had stated to a nurse on the day shift that she had considered overdosing on insulin. Dr Becker said to check blood sugars q 2 hrs and leave the insulin pump with the patient
[2021-09-01] MEDS ORDERED: LORazepam 1 MG tablet PO ONE (20:45)
--- NOTE | 2021-09-01 22:12 | NUR ---
Pt. self medicated 3.2u of insulin for BS of 209. MD hidalgo. Pump visualized by RN and
--- NOTE | 2021-09-01 22:22 | NUR ---
Patient's packet was sent to [facility].
--- NOTE | 2021-09-02 05:58 | NUR ---
PT. IS USING INSULIN PUMP TO SELF MEDICATE. UNITS GIVEN OBSERVED BY THE NURSE A SAFETY PRECAUTION.
--- NOTE | 2021-09-02 06:51 | NUR ---
patient asleep,respirations regular.
[2021-09-02] MEDS ORDERED: DEXTROSE 15 GM of carb/4 tabs (each vial/BOTTLE has 4 tablets) PO PRN ×2 (07:25)
[2021-09-02] MEDS ORDERED: glucagon, human recombinant 1mg kit SUBCUT PRN (07:25)
[2021-09-02] MEDS ORDERED: MESSAGE TO PHARMACY PO ONE (07:25)
[2021-09-02] MEDS ORDERED: dextrose 50%-water 50ml dispensing syringe IV PRN ×2 (07:25)
[2021-09-02] MEDS ORDERED: propranolol 10mg tablet PO SCH (08:00)
[2021-09-02] MEDS ORDERED: PAROXETINE HCL 25 MG PO SCH (08:00)
[2021-09-02] MEDS: DROSPIRENONE PO SCH (08:00)
[2021-09-02] MEDS: ETHINYL ESTRADIOL PO SCH (08:00)
[2021-09-02] MEDS: MAGNESIUM GLYCINATE PO SCH (08:00)
[2021-09-02] MEDS ORDERED: brexpiprazole 0.25mg tablet PO SCH (08:00)
--- NOTE | 2021-09-02 08:08 | NUR ---
[facility] DIDN'T GET MH PACKET... REFAXED
[2021-09-02] MEDS: metoclopramide 10mg tablet PO SCH ×3 (09:24→20:29)
[2021-09-02] MEDS ORDERED: PARO10TA4 PO (09:51)
[2021-09-02] MEDS ORDERED: propranolol 10mg tablet PO PRN (09:53)
[2021-09-02] MEDS ORDERED: clonazePAM 1mg tablet PO STA (09:55)
[2021-09-02] MEDS: pantoprazole 40mg Tablet.DR PO SCH (10:09)
[2021-09-02] MEDS: lisinopril 5mg tablet PO SCH (10:11)
[2021-09-02] MEDS: cholecalciferol (vitamin D3) 1,000 unit (25mcg) tablet PO SCH (10:13)
[2021-09-02] MEDS: atorvastatin 10mg tablet PO SCH (10:14)
[2021-09-02] MEDS: PARoxetine 10mg tablet PO SCH (10:15)
[2021-09-02] MEDS: clonazePAM 1mg tablet PO SCH (10:24)
--- NOTE | 2021-09-02 11:26 | NUR ---
SW at bedside,patient placed in 5150. patient's insulin pump confiscated.Patient cooperative.
--- NOTE | 2021-09-02 12:43 | NUR ---
patient eating lunch.We will monitor.
[2021-09-02] MEDS: insulin Lispro (HumaLOG) vial - multi-dose SQ SCH ×2 (13:50→20:41)
--- NOTE | 2021-09-02 14:15 | NUR ---
5 UNITS HUMULOG GIVEN SQ.
--- NOTE | 2021-09-02 16:20 | NUR ---
patient asleep to left side, respirations regular.
--- NOTE | 2021-09-02 16:52 | NUR ---
Per SW,patient's packet sent to different facilities including [facility]/ spoke to [facility] RN and updated regarding patient's vital signs.
--- NOTE | 2021-09-02 17:12 | NUR ---
Garrick/casey saw operator from [facility] called, pt was declined since patient is unable to check her blood sugar on her own, facility cannot accept her due to hx of diabetes with the use of implanted insulin pump.
--- NOTE | 2021-09-02 18:11 | NUR ---
[facility] will take patient around 2100 tonight.
[2021-09-02] MEDS ORDERED: insulin glargine (Lantus) pen - multi-dose SQ SCH (21:00)
[2021-09-02] MEDS ORDERED: LORazepam 1 MG tablet PO ONE (21:15)
[2021-09-02] MEDS ORDERED: traZODone 50mg tablet PO PRN (23:30)
[2021-09-02 23:32] VITALS: BP 137/82
--- NOTE | 2021-09-03 01:01 | NUR ---
NURSING ADMISSION NOTE 0213 reads: You have had increased suicidal ideation with an inability to maintain personal safety. You have expressed a plan to kill yourself by overdosing on insulin. Medical History: diabetic type 1, gastroparesis, GERD, hyperlipidemia, atypical depression, generalized anxiety d/o, panic disorder. Pt arrived on [facility] from ER on 09/02/21 at 2129 accompanied by staff. PT showered, 2RN skin check completed. Pt states she has always had anxiety and depression, but it has increased since the of her mother 2 years ago from lung cancer. She states after her she took medical leave for almost a year, and when she came back to work, she has been having such bad panic and anxiety, that she is not able to finish some of her shifts. She has had many absentee days because of this, and states she has had warnings, and recently her boss requested a meeting regarding this and she fears she is going to be fired. She was so overwhelmed and anxious about this meeting she could not go to it and ended up going to the ER. She has had suicidal ideation on and off for years, but it has become intense for her. She has a plan to overdose herself with insulin via her pump. She states she has thought about it to the extent that she would take an anit-anxiety med and then overdose herself to be more calm. 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 I feel horrible because my a worthless woman. She also states that it is not just work, she is so anxious she has trouble completing tasks at home or even playing board games with her without becoming overwhelmed.
[2021-09-03] MEDS: ondansetron 4mg rapidly disintigrating tab PO PRN ×2 (07:05→10:04)
--- NOTE | 2021-09-03 07:27 | NUR ---
Malnutrition/Diabetes consult: Pt admitted w/ depression SI w/ plan to overdose via insulin pump per EMR. A1c 8.1 though pt not appropriate for education given reason for admission. Pt unsure of wt loss per MST though current wt greater than wt's from previous admits. No reports of muscle or fat wasting. No edema noted. Pt consumed 100% of first meal. At this time pt does not meet minimum criteria for malnutrition. Addendum: 09/03/21 at [address] Amended: Links added.
[2021-09-03 08:00] VITALS: BP 134/75
[2021-09-03] MEDS ORDERED: PARoxetine 10mg tablet PO SCH (08:00)
[2021-09-03] MEDS: DROSPIRENONE PO SCH (08:00)
[2021-09-03] MEDS: ETHINYL ESTRADIOL PO SCH (08:00)
[2021-09-03] MEDS: MAGNESIUM GLYCINATE PO SCH (08:00)
[2021-09-03] MEDS ORDERED: METOCLOPRAMIDE HCL PO SCH (08:00)
[2021-09-03] MEDS: insulin Lispro (HumaLOG) vial - multi-dose SQ SCH ×2 (09:05→13:18)
[2021-09-03] MEDS: clonazePAM 1mg tablet PO SCH ×2 (12:59→20:12)
[2021-09-03] MEDS: pantoprazole 40mg Tablet.DR PO SCH (12:59)
[2021-09-03] MEDS: cholecalciferol (vitamin D3) 1,000 unit (25mcg) tablet PO SCH (12:59)
[2021-09-03] MEDS: atorvastatin 10mg tablet PO SCH (12:59)
[2021-09-03] MEDS: PARoxetine 10mg tablet PO SCH (12:59)
[2021-09-03] MEDS: metoclopramide 10mg tablet PO SCH ×3 (13:00→20:11)
[2021-09-03] MEDS: lisinopril 5mg tablet PO SCH (13:05)
[2021-09-03 13:06] VITALS: BP 131/78
[2021-09-03] MEDS ORDERED: MESSAGE TO PHARMACY PO ONE (15:40)
[2021-09-03] MEDS ORDERED: dextrose 50%-water 50ml dispensing syringe IV PRN ×2 (15:40)
[2021-09-03] MEDS ORDERED: glucagon, human recombinant 1mg kit SUBCUT PRN (15:40)
[2021-09-03] MEDS ORDERED: DEXTROSE 15 GM of carb/4 tabs (each vial/BOTTLE has 4 tablets) PO PRN ×2 (15:40)
--- NOTE | 2021-09-03 17:17 | NUR ---
Nursing Progress Note: [facility] Legal hold: 5150 for DTS. Expires 09/05 @ 7399. Client on voluntary/involuntary status for DTS Report received from LOURDES Horowitz with use of SBAR. Why are they here: 6925 reads: You have had increased suicidal ideation with an inability to maintain personal safety. You have expressed a plan to kill yourself by overdosing on insulin. Insulin pump was removed and placed with personal belongings. Hx: DM1, gastroparesis, GERD, hyperlipidemia, atypical depression, generalized anxiety d/o, panic disorder. Assessment What has happened this shift: Received patient sleeping at shift change, no distress noted. Pt woke up shortly before breakfast c/o N/V. PRN Zofran was administered, pt required a second dose for effectiveness. Morning medications were administered late r/t N/V. Pts AM blood sugar was 390. Pt declined breakfast. Pt was very tearful stating I am afraid to throw up. Pt states she has Emetophobia (fear of vomiting). Pt feels the N/V was r/t her high blood sugar. Pt is usually on an insulin pump, but that was taken away as her plan to take her life is to overdose on insulin. Pt states I feel bad because I am letting everyone down. Pts father came to visit her today and he is a good support. When asked about her pt stated he tries. Pts pre-prandial lunch blood sugar was 300. Pt has insight into her diabetes and is a little worried about increased blood sugars. S/I, H/I: Endorses S/I with a detailed plan to overdose on her insulin. Denies H/I. A/VH: Pt denies both. Sleep: 5.75 hours per sleep assessment. Napped in morning. ADL's: Independent Group attendance: No scheduled group today. Were meds taken: Yes, without issue. Any med S/E: None reported or observed. Mental Status Exam Appearance: Slightly disheveled, hair pulled back into a ponytail. Dressed in green unit scrubs. Eye contact: Good Behavior: Tearful in the morning r/t N/V. Out of her room in afternoon, drawing or watching T.V in community room. Speech: Clear, normal rate/rhythm Mood: Depressed/ A little brighter in afternoon. Affect: Congruent with mood Thought process: Linear Thought Content: Letting people down. Blood sugars without her pump. Cognition: Intact Insight: Fair Judgment: Fair. Interventions PRN's used: Zofran x 2 Therapeutic interventions: Maintained safe and therapeutic environment, established rapport, management of N/V, and blood sugar, encouraged patient to share thoughts and feelings, medication administration/education/monitoring; Q15 min safety checks. Restraints/seclusion/emergency medication: N/A Justification of Continued Inpatient Treatment: Pt has a long history of depression, which increased when her mother two years ago. Pt has a detailed suicide plan by overdosing with her insulin pump (which was taken away.) Pt requires an interruption of current crisis. Addendum: 09/03/21 at 1729 by Humera Li RN Blood sugar 324. Increased to LEVEL IV
[2021-09-03] MEDS ORDERED: propranolol 10mg tablet PO PRN (18:00)
[2021-09-03] MEDS ORDERED: clonazePAM 1mg tablet PO ONE (18:05)
[2021-09-03] MEDS: QUEtiapine 25mg tablet PO PRN (20:22)
[2021-09-03 20:24] VITALS: BP 104/59
[2021-09-03] MEDS: insulin glargine (Lantus) pen - multi-dose SQ SCH (20:54)
--- NOTE | 2021-09-04 03:14 | NUR ---
Nursing Progress Note: [facility] Legal hold: 5150 for DTS. Expires 09/05 @ 6922. Client on involuntary status for DTS Report received from LOURDES Be with use of SBAR. Why are they here: 5150 reads: You have had increased suicidal ideation with an inability to maintain personal safety. You have expressed a plan to kill yourself by overdosing on insulin. Insulin pump was removed and placed with personal belongings. Hx: DM1, gastroparesis, GERD, hyperlipidemia, atypical depression, generalized anxiety d/o, panic disorder. Assessment What has happened this shift: Patient seen in the community room at shift change. She is watching movies with other clients. She appears depressed, but there is also brightening at times. She does not engage with her peers. She stayed until snack time. The patient was in with the Doctor at dinner, so her plate was saved. Her BS had already been taken at 324, so she was covered for that on level 4. Her HS BS was still 311, and she was given 13 units Lantus. She was worried she might drop in the night, and she has been montored all night. Patient is sad and thinks she is letting people down. She continues lvl 4 S/I, H/I: Denies. A/VH: Denies. Sleep: See sleep assessment. ADL's: Independent Group attendance: No scheduled group today. Were meds taken: Yes, without issue. Any med S/E: None reported or observed. Mental Status Exam Appearance: Slightly disheveled, hair pulled back into a ponytail. Dressed in green unit scrubs. Eye contact: Good Behavior: Isolates to self, guarded, anxious. Speech: Clear, normal rate/rhythm Mood: Depressed. Affect: Congruent with mood Thought process: Linear Thought Content: Believes she has let everybody down. Cognition: Intact Insight: Fair Judgment: Fair. Interventions PRN's used: Zofran x 2 Therapeutic interventions: Maintained safe and therapeutic environment, established rapport, management of N/V, and blood sugar, encouraged patient to share thoughts and feelings, medication administration/education/monitoring; Q15 min safety checks. Restraints/seclusion/emergency medication: N/A Justification of Continued Inpatient Treatment: Pt has a long history of depression, which increased when her mother two years ago. Pt has a detailed suicide plan by overdosing with her insulin pump (which was taken away.) Pt requires an interruption of current crisis.
[2021-09-04] MEDS: ondansetron 4mg rapidly disintigrating tab PO PRN (06:50)
[2021-09-04 08:00] VITALS: BP 115/67
[2021-09-04] MEDS: DROSPIRENONE PO SCH (08:00)
[2021-09-04] MEDS: ETHINYL ESTRADIOL PO SCH (08:00)
[2021-09-04] MEDS: MAGNESIUM GLYCINATE PO SCH (08:00)
[2021-09-04] MEDS: clonazePAM 1mg tablet PO SCH ×3 (08:02→20:12)
[2021-09-04] MEDS: pantoprazole 40mg Tablet.DR PO SCH (08:03)
[2021-09-04] MEDS: cholecalciferol (vitamin D3) 1,000 unit (25mcg) tablet PO SCH (08:03)
[2021-09-04] MEDS: atorvastatin 10mg tablet PO SCH (08:04)
[2021-09-04] MEDS: lisinopril 5mg tablet PO SCH (08:04)
[2021-09-04] MEDS: metoclopramide 10mg tablet PO SCH ×3 (08:04→20:12)
[2021-09-04] MEDS: PARoxetine 10mg tablet PO SCH (08:05)
[2021-09-04] MEDS: QUEtiapine 25mg tablet PO PRN (08:11)
[2021-09-04] MEDS: insulin Lispro (HumaLOG) vial - multi-dose SQ SCH ×3 (08:29→18:36)
--- NOTE | 2021-09-04 18:15 | NUR ---
Nursing Progress Note: Legal hold: 5150 for DTS. Expires 09/05 @ 3412. Client on voluntary/involuntary status for DTS Report received from LOURDES Quiñonez with use of SBAR. Why are they here: 515 reads: You have had increased suicidal ideation with an inability to maintain personal safety. You have expressed a plan to kill yourself by overdosing on insulin. Insulin pump was removed and placed with personal belongings. Hx: DM1, gastroparesis, GERD, hyperlipidemia, atypical depression, generalized anxiety d/o, panic disorder. Assessment What has happened this shift: RN received pt. asleep at start of shift. Pt.s CBG was 392 and pt. is on level 4 diabetic protocol. Pt. awoke for breakfast and took medication. Pt. c/o nausea and took Zofran 4mg ODT with good effect. Pt. requested Seroquel 50mg PRN and received with good effect. Pt. isolated to her room most of the day, coming out for meals and snacks. In the afternoon pt.s CBG was was 315 and pt. was moved to level 5 diabetic protocol. 1:1 done at bedside, pt. continues to report SI with plan to OD on insulin. Pt. gives minimal information during interview. S/I, H/I: Endorses S/I with a detailed plan to overdose on her insulin. Denies H/I. A/VH: Pt denies both. Sleep: 9.25 hours per sleep assessment. Pt. napped intermittently during the day. ADL's: Independent Group attendance: No Were meds taken: Yes Any med S/E: Denies. None observed. Mental Status Exam Appearance: Slightly disheveled, hair pulled back into a ponytail. Dressed in green unit scrubs. Eye contact: Good Behavior: Cooperative. Socially withdrawn. Isolates to her room. Speech: WNL Mood: Depressed Affect: Congruent with mood Thought process: Linear Thought Content: Circumstantial Cognition: A&OX4 Insight: Fair Judgment: Fair. Interventions PRN's used: Zofran, Seroquel Therapeutic interventions: Maintained safe and therapeutic environment, established rapport, management of N/V, and blood sugar, encouraged patient to share thoughts and feelings, medication administration/education/monitoring; Q15 min safety checks. Restraints/seclusion/emergency medication: N/A Justification of Continued Inpatient Treatment: Pt has a long history of depression, which increased when her mother two years ago. Pt has a detailed suicide plan by overdosing with her insulin pump (which was taken away.) Pt requires an interruption of current crisis.
[2021-09-04 20:00] VITALS: BP 99/58
[2021-09-04] MEDS: insulin glargine (Lantus) pen - multi-dose SQ SCH (20:34)
--- NOTE | 2021-09-05 03:33 | NUR ---
Nursing Progress Note: Legal hold: 5150 for DTS. Expires 09/05 @ 9911. Client on involuntary status for DTS Report received from LOURDES Bey with use of SBAR. Why are they here: 5150 reads: You have had increased suicidal ideation with an inability to maintain personal safety. You have expressed a plan to kill yourself by overdosing on insulin. Insulin pump was removed and placed with personal belongings. Hx: DM1, gastroparesis, GERD, hyperlipidemia, atypical depression, generalized anxiety d/o, panic disorder. Assessment What has happened this shift: Patient napping at shift change. She woke up soon after and went in the community room. She isolates to herself and doesn't speak to other clients. Patient denies all MH symptoms, but depression and SI. Although she does report spending less time thinking about it. Patient stayed there for snack and HS meds. She warned me that she was eating potato chips for carbs because she did not eat dinner. Her HS blood sugar was 177, which is better than yesterday, and they are trending down. Patient continues to be worried about external factors that she is hurting people and letting them down. Patient received 7 units Lantus. She watched a movie until 2200, before retiring to bed. She did not request PRN tonight. S/I, H/I: Denies. A/VH: Denies. Sleep: See sleep assessment. ADL's: Independent Group attendance: No scheduled group today. Were meds taken: Yes, without issue. Any med S/E: None reported or observed. Mental Status Exam Appearance: Slightly disheveled, hair pulled back into a ponytail. Dressed in green unit scrubs. Eye contact: Good Behavior: Isolates to self, guarded, anxious. Speech: Clear, normal rate/rhythm Mood: Depressed. Affect: Congruent with mood Thought process: Linear Thought Content: Believes she has let everybody down. Cognition: Intact Insight: Fair Judgment: Fair. Interventions PRN's used: Therapeutic interventions: Maintained safe and therapeutic environment, established rapport, management of N/V, and blood sugar, encouraged patient to share thoughts and feelings, medication administration/education/monitoring; Q15 min safety checks. Restraints/seclusion/emergency medication: N/A Justification of Continued Inpatient Treatment: Pt has a long history of depression, which increased when her mother two years ago. Pt has a detailed suicide plan by overdosing with her insulin pump (which was taken away.) Pt requires an interruption of current crisis.
[2021-09-05 07:35] VITALS: BP 118/67
[2021-09-05] MEDS: pantoprazole 40mg Tablet.DR PO SCH (08:04)
[2021-09-05] MEDS: clonazePAM 1mg tablet PO SCH ×3 (08:04→20:09)
[2021-09-05] MEDS: atorvastatin 10mg tablet PO SCH (08:04)
[2021-09-05] MEDS: PARoxetine 10mg tablet PO SCH (08:05)
[2021-09-05] MEDS: lisinopril 5mg tablet PO SCH (08:05)
[2021-09-05] MEDS: cholecalciferol (vitamin D3) 1,000 unit (25mcg) tablet PO SCH (08:05)
[2021-09-05] MEDS: metoclopramide 10mg tablet PO SCH ×3 (08:06→20:12)
[2021-09-05] MEDS: insulin Lispro (HumaLOG) vial - multi-dose SQ SCH ×3 (08:36→18:51)
--- NOTE | 2021-09-05 09:08 | NUR ---
Pt. attended both groups offered today. In the first group we talked about Self Nurturing and how to curate spaces of nurture/self-care for themselves. The second group was an Art Expression where they had to draw things they would like to hold onto in their life and things that they wanted to let go of. Pt. was alert and oriented X 4 in both groups. She was calm, compliant and pleasant. Her thought content and thought process were WNL. Pt. was very open with sharing her thoughts with the group. She seemed to really enjoy the Art Expression. Her picture show her letting go of anxiety and depression and holding on to balance. She wanted to hold onto her , her pets and her job. Amelia Dumont LCSW
--- NOTE | 2021-09-05 09:59 | NUR ---
CM-Pre-DCP Presenting Issues: Pt's 5150 will tonight and pt will sign vol. Pt needs support w/dcp activities. Interventions: Clinician met w/pt and engaged her in pre-dcp activities to assess pt's d/c needs. Per t/c, pt will need appointment w/Sonja Ferguson @ the [facility], and referrals for a new therapist that will accepts Blue Shield/Prime insurance. Clinician also provided info re [employer] application and provided pt with [employer] 1-800 number to call while she's here to get info re benefits eligibility. Pt requesting letter to support medical leave, pt was informed that we can provide letter to cover her inpatient treatment and pt will need to f/u with her outpatient provider re a longer term leave support. Plan: Clinician will contact the [facility] to schedule pt's post-hospital appointment and provide listing of psychotherapists who will accepts pt's health insurance. Nhung James LCSW Addendum: 09/05/21 at 1048 by Nhung James SS Amended: Links added.
--- NOTE | 2021-09-05 13:39 | NUR ---
CM-Linkages Presenting Issues: Pt's 5150 will jared, attending PA will have pt sign vol, pt needs support w/dcp activities. Interventions: Clinician [facility] to coordinate pt's post-hospital appointments with her PMD & outpatient psychiatric care providers. Nhung James LCSW Addendum: 09/05/21 at 1404 by Nhung James SS Amended: Links added.
--- NOTE | 2021-09-05 17:38 | NUR ---
Nursing Progress Note: Legal hold: 5150 for DTS. Expires 09/05 @ 5557. Client on voluntary/involuntary status for DTS Report received from LOURDES Turner with use of SBAR. Why are they here: 5150 reads: You have had increased suicidal ideation with an inability to maintain personal safety. You have expressed a plan to kill yourself by overdosing on insulin. Insulin pump was removed and placed with personal belongings. Hx: DM1, gastroparesis, GERD, hyperlipidemia, atypical depression, generalized anxiety d/o, panic disorder. Assessment What has happened this shift: RN received pt. asleep at start of shift. Pt. awoke for breakfast and took medication. Pt. went to and participated in groups. Pt.s affect appears brighter today. Pt. observed making multiple phone calls today. 1:1 done in community room. Pt. denies SI. Pt. states, I no longer feel suicidal, I know my loves me But I still feel hopeless about the future. Pt. reports she is trying to obtain disability benefits and that is why she has been on the phone must of the day. Pt. reports she feels like her medications are helping her. PT IS LEVEL 6 ON THE DEBETIC PROTOCOL. PT.S AM CBG 368, LUNCH 233, DINNER - 158 S/I, H/I: Denies A/VH: Denies Sleep: 8.75 hours per sleep assessment. Pt. napped intermittently during the day. ADL's: Independent Group attendance: Yes Were meds taken: Yes Any med S/E: Denies. None observed. Mental Status Exam Appearance: Slightly disheveled, hair pulled back into a ponytail. Dressed in green unit scrubs. Eye contact: WNL Behavior: Cooperative. Socially withdrawn. Isolates to her room. Speech: WNL Mood: Depressed Affect: Congruent with mood Thought process: Linear Thought Content: Circumstantial Cognition: A&OX4 Insight: Fair Judgment: Fair. Interventions PRN's used: Daniella Li Therapeutic interventions: Maintained safe and therapeutic environment, established rapport, management of N/V, and blood sugar, encouraged patient to share thoughts and feelings, medication administration/education/monitoring; Q15 min safety checks. Restraints/seclusion/emergency medication: N/A Justification of Continued Inpatient Treatment: Pt has a long history of depression, which increased when her mother two years ago. Pt has a detailed suicide plan by overdosing with her insulin pump (which was taken away.) Pt requires an interruption of current crisis.
[2021-09-05 20:00] VITALS: BP 146/85
[2021-09-05] MEDS: insulin glargine (Lantus) pen - multi-dose SQ SCH ×2 (20:30→21:00)
--- NOTE | 2021-09-05 23:33 | NUR ---
Nursing Progress Note: Legal hold: 5150 for DTS. Expires 09/05 @ 4579. Client on involuntary status for DTS Report received from LOURDES Bey with use of SBAR. Why are they here: 5150 reads: You have had increased suicidal ideation with an inability to maintain personal safety. You have expressed a plan to kill yourself by overdosing on insulin. Insulin pump was removed and placed with personal belongings. Hx: DM1, gastroparesis, GERD, hyperlipidemia, atypical depression, generalized anxiety d/o, panic disorder. Assessment What has happened this shift: Patient seen in the community room for 1:1. Her affect is much brighter this evening. She reports feeling less overwhelmed than before. She's making plans and moving forward, working on getting entitlements set up. She has concerns that she will lose her job, when they are already having money problems. She states that she hasn't thought of suicide today, and she appears less depressed. Her BG was 155 at HS. She remains on lvl 6. Patient is compliant with medications, and went to bed right after receiving them. S/I, H/I: Denies. A/VH: Denies. Sleep: See sleep assessment. ADL's: Independent Group attendance: No scheduled group today. Were meds taken: Yes, without issue. Any med S/E: None reported or observed. Mental Status Exam Appearance: Slightly disheveled, hair pulled back into a ponytail. Dressed in green unit scrubs. Eye contact: Good Behavior: Isolates to self, guarded, anxious. Speech: Clear, normal rate/rhythm Mood: Depressed. Affect: Congruent with mood Thought process: Linear Thought Content: Believes she has let everybody down. Cognition: Intact Insight: Fair Judgment: Fair. Interventions PRN's used: Therapeutic interventions: Maintained safe and therapeutic environment, established rapport, management of N/V, and blood sugar, encouraged patient to share thoughts and feelings, medication administration/education/monitoring; Q15 min safety checks. Restraints/seclusion/emergency medication: N/A Justification of Continued Inpatient Treatment: Pt has a long history of depression, which increased when her mother two years ago. Pt has a detailed suicide plan by overdosing with her insulin pump (which was taken away.) Pt requires an interruption of current crisis.
[2021-09-06] MEDS: ondansetron 4mg rapidly disintigrating tab PO PRN (04:51)
--- NOTE | 2021-09-06 07:16 | NUR ---
Initial: Pt admitted w/ depression SI w/ plan to overdose via insulin pump per EMR. Currently on Carb controlled diet w/ mostly 100% intake of meals and participates in snacks per documentation, meeting est nutrient needs at this time. LBM 09/02, receiving routine Reglan. No nutrition intervention implemented at this time, will continue to monitor. Recs: 1. Continue Carb control diet as tolerated, offer snacks 2. Bowel care per rx 3. Weekly wts Addendum: 09/06/21 at [address] Amended: Links added.
[2021-09-06 07:24] VITALS: BP 111/70
[2021-09-06] MEDS: atorvastatin 10mg tablet PO SCH (07:50)
[2021-09-06] MEDS: pantoprazole 40mg Tablet.DR PO SCH (07:50)
[2021-09-06] MEDS: cholecalciferol (vitamin D3) 1,000 unit (25mcg) tablet PO SCH (07:50)
[2021-09-06] MEDS: clonazePAM 1mg tablet PO SCH ×2 (07:50→13:00)
[2021-09-06 07:51] VITALS: BP_SYST 111
[2021-09-06] MEDS: PARoxetine 10mg tablet PO SCH (07:51)
[2021-09-06] MEDS: lisinopril 5mg tablet PO SCH (07:51)
[2021-09-06] MEDS: metoclopramide 10mg tablet PO SCH ×2 (07:51→12:59)
[2021-09-06] MEDS: insulin Lispro (HumaLOG) vial - multi-dose SQ SCH ×2 (08:16→13:12)
--- NOTE | 2021-09-06 11:32 | NUR ---
DCP Presenting Issues: Pt's on Vol status pending dcp. Interventions: Clinician met w/pt and engaged her in dcp activities. Pt reports she's thought about her post d/c needs and would like to develop a dcp now. Per session, pt denies any SI and is future focus. Pt shares that she is worried that she may get terminated from her job and is planning in the event that she does lose her job. Pt asked questions about her options should she lose her job, clinician provided general info about SSDI, SSI and Unemployment benefits. Pt had contacted [facility] yesterday and learned that she can schedule an appointment to see someone there who can assist her w/SSDI application. Clinician also informed pt about planning for how she will continue to receive healthcare services in the event that she loses her job, info for [employer] and [employer] were provided. Pt verbalize understanding of why [facility] provider is not the appropriate healthcare provider to provide justification to support pt's request for medical leave, pt will discuss this w/outpt providers. Pt agreed to f/u w/outpt providers and contacting the psychotherapists from list clinician provided to schedule an intake for services. Clinician provided instructions for thought stopping coping strategies to managed negative thoughts & SI. Plan Pt to d/c tomorrow to go home and f/u with outpt providers. Nhung James LCSW Addendum: 09/06/21 at 1307 by Nhung James SS Amended: Links added.
[2021-09-06] MEDS ORDERED: CLON1TAB12 PO (15:05)
[2021-09-06] MEDS ORDERED: QUET25TA36 PO (16:01)
[2021-09-06] MEDS ORDERED: TRAZ-251 PO (16:01)
--- NOTE | 2021-09-06 16:40 | NUR ---
DISCHARGE NOTE: Pt. discharged to home, pt. picked up by and driven in car. RN went over all discharge paperwork with pt., pt. verbalized understanding of, and signed all paper work including f/u plan, home medication regimen, crises phone numbers, including 911. Pt. denies SI/HI, A/V hallucinations, is calm and in no apparent distress. Pt. is A&Ox4. Pt. discharged with all valuables and belongings.
== END 2021-09-06 16:40 | disposition home or self-care (01) | DRG 885 ==
LOC: EEVIPCON 10:57 → ER 10:57 → ED HOLD 09-02 17:45 → ADULT MH 09-02 21:29
PROVIDERS: ADMIT Psychiatry & Neurology Psychiatry; ATTEND Psychiatry & Neurology Psychiatry
DX: F33.2 Major depressive disorder, recurrent severe without psychotic features (principal); R45.851 Suicidal ideations; Z68.42 Body mass index [BMI] 45.0-49.9, adult; E10.9 Type 1 diabetes mellitus without complications; E66.01 Morbid (severe) obesity due to excess calories; E78.00 Pure hypercholesterolemia, unspecified; E78.5 Hyperlipidemia, unspecified; F17.210 Nicotine dependence, cigarettes, uncomplicated; F41.0 Panic disorder [episodic paroxysmal anxiety]; Z20.822 Contact with and (suspected) exposure to COVID-19; I10 Essential (primary) hypertension; K21.9 Gastro-esophageal reflux disease without esophagitis; K22.4 Dyskinesia of esophagus; N83.209 Unspecified ovarian cyst, unspecified side; Z79.4 Long term (current) use of insulin; Z80.1 Family history of malignant neoplasm of trachea, bronchus and lung; Z81.8 Family history of other mental and behavioral disorders; Z88.2 Allergy status to sulfonamides; Z90.49 Acquired absence of other specified parts of digestive tract; Z79.899 Other long term (current) drug therapy
CPT/HCPCS: 36415; 80053; 80305; 80320; 81025; 82948; 83036; 85025; 87081; 87635; 99285; C9803; J1815; J8597

== ENCOUNTER 2022-02-07 13:03 | Outpatient (CLI) | payer BC ==
[~2022-02-07 13:03] MED LIST changes: +BREX0.5T PO; +CHOL20002 PO; -CHOL20004 PO; -CLON-527 PO; +CLON1TAB12 PO; -DOCU-148 PO; +ETHI1TAB20 PO; -ETHI1TAB30 PO; +INSU100I8 SQ; -INSU100V43 SQ; -ONDA4FIL5; +ONDA4TAB12 PO; +PANT40TA54 PO; +PARO10TA4 PO; -PARO25TA17 PO; +QUET25TA36 PO; +TRAZ-251 PO; -WEL625T PO
[2022-02-07 14:04] LABS: CLARITY,URINE CLEAR (Clear); COLOR,URINE YELLOW (Yellow); GLUCOSE, URINE >=1000 mg/dl (Neg); KETONES,URINE NEGATIVE (Neg); LEUKOCYTE ESTERASE ,URINE NEGATIVE (Neg); NITRITES, URINE NEGATIVE (Neg); OCCULT BLOOD,URINE TRACE-INTACT (Neg); PH,URINE 5.5 (4.8-8.0); PROTEIN,URINE NEGATIVE (Neg); UROBILINOGEN,URINE 0.2 E.U/dL (0.2-1.0)
[2022-02-07 14:08] LABS: UA COLLECTION TYPE CLN CATCH MIDSTREAM
[2022-02-07 14:09] LABS: BASOPHILS # (AUTO) 0.1 X10'3 (0-0.2); BASOPHILS % (AUTO) 0.7 % (0-1); EOSINOPHILS # (AUTO) 0.3 X10'3 (0-0.9); EOSINOPHILS % (AUTO) 2.9 % (0-6); HEMOGLOBIN 12.8 g/dl (12.0-16.0); LYMPHOCYTES # (AUTO) 2.4 X10'3 (1.1-4.8); LYMPHOCYTES % (AUTO) 23.1 % (21-51); MEAN CORPUSCULAR HEMOGLOBIN 26.6 PG (27.0-31.0); MEAN CORPUSCULAR HGB CONC 32.7 g/dL (33.0-36.5); MEAN CORPUSCULAR VOLUME 81.4 FL (78-98); MEAN PLATELET VOLUME 10.5 FL (7.4-10.4); MONOCYTES # (AUTO) 0.8 X10'3 (0-0.9); MONOCYTES % (AUTO) 7.6 % (2-12); NEUTROPHILS # (AUTO) 6.8 X10'3 (1.8-7.7); NEUTROPHILS % (AUTO) 65.7 % (42-75); PLATELET COUNT 243 X10'3 (140-440); RED BLOOD COUNT 4.79 X10'6 (4.20-5.60); RED CELL DISTRIBUTION WIDTH 13.9 % (11.5-14.5); WHITE BLOOD COUNT 10.4 X10'3 (4.5-11.0)
[2022-02-07 14:25] LABS: BACTERIA,URINE FEW /HPF (Neg); RBC,URINE 0-2 /HPF (0-2); SQUAMOUS EPITHELIAL CELL,UR FEW /LPF (FEW); WBC,URINE 0-4 /HPF (0-4)
[2022-02-07 14:49] LABS: ALANINE AMINOTRANSFERASE 22 U/L (12-78); ALBUMIN 2.9 G/DL (3.4-5.0); ALBUMIN/GLOBULIN RATIO 0.6 (1.1-1.5); ALKALINE PHOSPHATASE 127 IU/L (46-116); ANION GAP 10 (8-16); ASPARTATE AMINO TRANSFERASE 16 U/L (10-37); BILIRUBIN,TOTAL 0.1 MG/DL (0.1-1.0); BLOOD UREA NITROGEN 9 MG/DL (7-18); BUN/CREATININE RATIO 10.3 (6.6-38.0); CHLORIDE 101 MMOL/L (99-107); CHOL/HDL RATIO 2.2 (0.00-4.99); CHOLESTEROL 193 MG/DL (0-200); CREATININE 0.87 MG/DL (0.40-0.90); GLUCOSE 269 MG/DL (70-104); HDL CHOLESTEROL 86 MG/DL (35-60); LDL CHOLESTEROL 77 MG/DL (50-100); POTASSIUM 3.7 MMOL/L (3.5-5.1); SODIUM 136 MMOL/L (135-145); TOTAL CARBON DIOXIDE 25.2 MMOL/L (24-32); TOTAL PROTEIN 7.4 G/DL (6.4-8.2); TRIGLYCERIDES 87 MG/DL (20-135); eGFR 76 ML/MIN
== END 2022-02-07 23:59 | disposition home or self-care (01) ==
LOC: LAB 13:03
PROVIDERS: ATTEND Nurse Practitioner
DX: I51.9 Heart disease, unspecified (principal); H53.9 Unspecified visual disturbance; F41.9 Anxiety disorder, unspecified; E10.65 Type 1 diabetes mellitus with hyperglycemia; F32.9 Major depressive disorder, single episode, unspecified; H47.321 Drusen of optic disc, right eye; E66.9 Obesity, unspecified
CPT/HCPCS: 36415; 80053; 80061; 81001; 82306; 82607; 82746; 84439; 84443; 85025

== ENCOUNTER 2022-02-26 01:35 | Emergency (ER) | payer BC ==
[~2022-02-26] VITALS: Ht 160 cm; Wt 110.7 kg
[2022-02-26 10:25] VITALS: BP 122/78
== END 2022-02-26 11:50 | disposition home or self-care (01) ==
LOC: ER 01:37
DX: B34.9 Viral infection, unspecified (principal); Z20.822 Contact with and (suspected) exposure to COVID-19; J02.9 Acute pharyngitis, unspecified; R05.9 Cough, unspecified; R09.89 Other specified symptoms and signs involving the circulatory and respiratory systems; E78.00 Pure hypercholesterolemia, unspecified; E11.9 Type 2 diabetes mellitus without complications; F41.9 Anxiety disorder, unspecified; Z90.49 Acquired absence of other specified parts of digestive tract; Z98.890 Other specified postprocedural states; Z88.2 Allergy status to sulfonamides; Z79.899 Other long term (current) drug therapy
CPT/HCPCS: 36415; 82948; 87502; 87503; 87635; 99283; C9803

== ENCOUNTER 2022-03-17 22:12 | Emergency (ER) | payer BC ==
[~2022-03-17] VITALS: Ht 157.5 cm; Wt 109.1 kg
[2022-03-17 22:55] LABS: BASOPHILS # (AUTO) 0.1 X10'3 (0-0.2); BASOPHILS % (AUTO) 0.9 % (0-1); EOSINOPHILS # (AUTO) 0.3 X10'3 (0-0.9); EOSINOPHILS % (AUTO) 2.4 % (0-6); HEMATOCRIT 40.2 % (35.0-45.0); HEMOGLOBIN 13.1 g/dl (12.0-16.0); LYMPHOCYTES # (AUTO) 3.6 X10'3 (1.1-4.8); LYMPHOCYTES % (AUTO) 30.8 % (21-51); MEAN CORPUSCULAR HEMOGLOBIN 26.3 PG (27.0-31.0); MEAN CORPUSCULAR HGB CONC 32.6 g/dL (33.0-36.5); MEAN CORPUSCULAR VOLUME 80.5 FL (78-98); MEAN PLATELET VOLUME 9.9 FL (7.4-10.4); MONOCYTES % (AUTO) 8.7 % (2-12); NEUTROPHILS # (AUTO) 6.6 X10'3 (1.8-7.7); NEUTROPHILS % (AUTO) 57.2 % (42-75); PLATELET COUNT 245 X10'3 (140-440); RED BLOOD COUNT 4.99 X10'6 (4.20-5.60); RED CELL DISTRIBUTION WIDTH 13.9 % (11.5-14.5); WHITE BLOOD COUNT 11.6 X10'3 (4.5-11.0)
[2022-03-17 23:07] LABS: ALANINE AMINOTRANSFERASE 27 U/L (12-78); ALBUMIN 2.9 G/DL (3.4-5.0); ALBUMIN/GLOBULIN RATIO 0.6 (1.1-1.5); ALKALINE PHOSPHATASE 136 IU/L (46-116); ANION GAP 12 (8-16); ASPARTATE AMINO TRANSFERASE 18 U/L (10-37); BILIRUBIN,TOTAL 0.4 MG/DL (0.1-1.0); BLOOD UREA NITROGEN 12 MG/DL (7-18); BUN/CREATININE RATIO 12.8 (6.6-38.0); CHLORIDE 99 MMOL/L (99-107); CREATININE 0.94 MG/DL (0.40-0.90); GLUCOSE 259 MG/DL (70-104); POTASSIUM 3.7 MMOL/L (3.5-5.1); SODIUM 133 MMOL/L (135-145); TOTAL CARBON DIOXIDE 22.2 MMOL/L (24-32); TOTAL PROTEIN 7.4 G/DL (6.4-8.2); eGFR 70 ML/MIN
[2022-03-17] MEDS ORDERED: ondansetron/PF 4mg/2ml inj IV ONE (23:15)
[2022-03-17] MEDS ORDERED: normal saline 1000ml 1,000 ML IV ONE (23:15)
[2022-03-17] MEDS ORDERED: ONDA4TAB12 PO (23:55)
[2022-03-18 00:17] LABS: CLARITY,URINE CLEAR (Clear); COLOR,URINE YELLOW (Yellow); GLUCOSE, URINE 250 mg/dl (Neg); KETONES,URINE 40 mg/dl (Neg); LEUKOCYTE ESTERASE ,URINE NEGATIVE (Neg); NITRITES, URINE NEGATIVE (Neg); OCCULT BLOOD,URINE NEGATIVE (Neg); PROTEIN,URINE NEGATIVE (Neg); UROBILINOGEN,URINE 0.2 E.U/dL (0.2-1.0)
[2022-03-18 00:18] LABS: URINE HCG NEGATIVE (NEG)
[2022-03-18 00:25] LABS: UA COLLECTION TYPE CLN CATCH MIDSTREAM
[2022-03-18 00:36] VITALS: BP 116/72
== END 2022-03-18 00:53 | disposition home or self-care (01) ==
LOC: ER 22:12
DX: B34.9 Viral infection, unspecified (principal); Z20.822 Contact with and (suspected) exposure to COVID-19; R11.0 Nausea; Z88.2 Allergy status to sulfonamides; E78.00 Pure hypercholesterolemia, unspecified; E11.9 Type 2 diabetes mellitus without complications; Z90.49 Acquired absence of other specified parts of digestive tract
CPT/HCPCS: 36415; 80053; 81003; 81025; 85025; 87502; 87503; 87635; 96361; 96374; 99283; C9803; J2405; J7030

== ENCOUNTER 2022-03-19 08:35 | Emergency (ER) | payer BC ==
[~2022-03-19] VITALS: Ht 157.5 cm; Wt 110.0 kg
[2022-03-19 09:52] VITALS: BP 125/76
== END 2022-03-19 12:29 | disposition home or self-care (01) ==
LOC: ER 08:35
DX: J06.9 Acute upper respiratory infection, unspecified (principal); J02.9 Acute pharyngitis, unspecified; E78.00 Pure hypercholesterolemia, unspecified; E11.9 Type 2 diabetes mellitus without complications; F41.9 Anxiety disorder, unspecified; Z90.49 Acquired absence of other specified parts of digestive tract; Z79.899 Other long term (current) drug therapy; Z88.2 Allergy status to sulfonamides
CPT/HCPCS: 87081; 87880; 99283

== ENCOUNTER 2022-06-27 10:36 | Emergency (ER) | payer BC ==
[~2022-06-27] VITALS: Ht 160 cm; Wt 109.0 kg
--- NOTE | 2022-06-27 11:20 | NUR ---
PT CAME UP TO REGISTRATION WINDOW STATING SHE NOW HAS CHEST PAIN. AN EKG IS DONE. SHE IS ALSO VERY ANXIOUS APPEARING AND HYPERVENTILATING. PT ENCOURAGED TO SLOW BREATHING. SHE STATES SHE FEELS LIKE SHE IS GOING TO PASS OUT AND SHE IS TYPE 1 DIABETIC. [facility] COMES BACK AT 238. Addendum: 06/27/22 at 1128 by JOEY THE CHEST PAIN IS BURNING IN NATURE AND MORE EPIGASTRIC IN LOCATION 6/10 ON PAIN SCALE
[2022-06-27 11:47] LABS: BASOPHILS # (AUTO) 0.1 X10'3 (0-0.2); BASOPHILS % (AUTO) 0.4 % (0-1); EOSINOPHILS % (AUTO) 0.1 % (0-6); HEMATOCRIT 42.7 % (35.0-45.0); HEMOGLOBIN 14.2 g/dl (12.0-16.0); LYMPHOCYTES # (AUTO) 2.3 X10'3 (1.1-4.8); LYMPHOCYTES % (AUTO) 14.6 % (21-51); MEAN CORPUSCULAR HGB CONC 33.2 g/dL (33.0-36.5); MEAN CORPUSCULAR VOLUME 81.5 FL (78-98); MEAN PLATELET VOLUME 10.1 FL (7.4-10.4); MONOCYTES # (AUTO) 1.1 X10'3 (0-0.9); MONOCYTES % (AUTO) 6.7 % (2-12); NEUTROPHILS # (AUTO) 12.3 X10'3 (1.8-7.7); NEUTROPHILS % (AUTO) 78.2 % (42-75); PLATELET COUNT 306 X10'3 (140-440); RED BLOOD COUNT 5.24 X10'6 (4.20-5.60); RED CELL DISTRIBUTION WIDTH 14.4 % (11.5-14.5); WHITE BLOOD COUNT 15.7 X10'3 (4.5-11.0)
[2022-06-27 12:29] LABS: ALANINE AMINOTRANSFERASE 42 U/L (12-78); ALBUMIN 3.4 G/DL (3.4-5.0); ALBUMIN/GLOBULIN RATIO 0.7 (1.1-1.5); ALKALINE PHOSPHATASE 132 IU/L (46-116); ANION GAP 13 (8-16); ASPARTATE AMINO TRANSFERASE 25 U/L (10-37); BILIRUBIN,TOTAL 0.3 MG/DL (0.1-1.0); BLOOD UREA NITROGEN 8 MG/DL (7-18); BUN/CREATININE RATIO 10.8 (6.6-38.0); CALCIUM 9.5 MG/DL (8.5-10.1); CHLORIDE 102 MMOL/L (99-107); CREATININE 0.74 MG/DL (0.40-0.90); GLUCOSE 268 MG/DL (70-104); POTASSIUM 4.4 MMOL/L (3.5-5.1); SODIUM 136 MMOL/L (135-145); TOTAL CARBON DIOXIDE 21.1 MMOL/L (24-32); TOTAL PROTEIN 8.3 G/DL (6.4-8.2); eGFR > 90 ML/MIN
[2022-06-27 12:35] LABS: LIPASE < 50 U/L (73-393)
[2022-06-27] MEDS ORDERED: diphenhydrAMINE 50 mg/ml inj IV ONE (14:50)
[2022-06-27] MEDS ORDERED: metoclopramide 5 mg/ml inj IV ONE ×2 (14:50→16:55)
[2022-06-27] MEDS ORDERED: ringers solution, lactated 1000ml IV soln IV ONE (14:50)
[2022-06-27] MEDS ORDERED: SUCR1TAB34 PO (16:39)
[2022-06-27] MEDS ORDERED: ONDA4TAB12 PO (16:39)
[2022-06-27] MEDS ORDERED: LIDOcaine Viscous 15ml cup MM ONE (16:55)
[2022-06-27] MEDS ORDERED: mag hydrox/Alum hydrox/simeth 30ml oral suspension PO ONE (16:55)
[2022-06-27] MEDS ORDERED: sucralfate 1 gm tablet PO ONE (16:55)
[2022-06-27 17:07] VITALS: BP 128/64
== END 2022-06-27 17:10 | disposition home or self-care (01) ==
LOC: ER 10:37
DX: K29.70 Gastritis, unspecified, without bleeding (principal); E11.43 Type 2 diabetes mellitus with diabetic autonomic (poly)neuropathy; K31.84 Gastroparesis; F41.9 Anxiety disorder, unspecified; Z90.49 Acquired absence of other specified parts of digestive tract; Z98.890 Other specified postprocedural states; E78.00 Pure hypercholesterolemia, unspecified; Z88.2 Allergy status to sulfonamides; Z79.899 Other long term (current) drug therapy
CPT/HCPCS: 80053; 82948; 83690; 84484; 85025; 93005; 96361; 96374; 96375; 99284; J1200; J2765; J7120

== ENCOUNTER 2023-03-29 11:18 | Emergency (ER) | payer BC, OTHER ==
[~2023-03-29] VITALS: Ht 160 cm; Wt 109.4 kg
[~2023-03-29 11:18] MED LIST changes: +SUCR1TAB34 PO
[2023-03-29] MEDS ORDERED: ondansetron 4mg rapidly disintigrating tab PO ONE (11:30)
[2023-03-29 12:47] LABS: BASOPHILS # (AUTO) 0.1 X10'3 (0-0.2); BASOPHILS % (AUTO) 0.2 % (0-1); EOSINOPHILS % (AUTO) 0.1 % (0-6); HEMATOCRIT 48.2 % (35.0-45.0); HEMOGLOBIN 15.9 g/dl (12.0-16.0); LYMPHOCYTES # (AUTO) 1.1 X10'3 (1.1-4.8); MEAN CORPUSCULAR HEMOGLOBIN 27.5 PG (27.0-31.0); MEAN CORPUSCULAR VOLUME 83.3 FL (78-98); MEAN PLATELET VOLUME 10.2 FL (7.4-10.4); MONOCYTES # (AUTO) 2.4 X10'3 (0-0.9); MONOCYTES % (AUTO) 8.7 % (2-12); NEUTROPHILS # (AUTO) 23.8 X10'3 (1.8-7.7); PLATELET COUNT 373 X10'3 (140-440); RED BLOOD COUNT 5.79 X10'6 (4.20-5.60); RED CELL DISTRIBUTION WIDTH 13.3 % (11.5-14.5)
[2023-03-29 12:51] LABS: WHITE BLOOD COUNT 27.4 X10'3 (4.5-11.0)
[2023-03-29 12:55] LABS: ALANINE AMINOTRANSFERASE 44 U/L (12-78); ALBUMIN 3.4 G/DL (3.4-5.0); ALBUMIN/GLOBULIN RATIO 0.7 (1.1-1.5); ALKALINE PHOSPHATASE 176 IU/L (46-116); ANION GAP 13 (8-16); ASPARTATE AMINO TRANSFERASE 36 U/L (10-37); BILIRUBIN,TOTAL 0.4 MG/DL (0.1-1.0); BLOOD UREA NITROGEN 19 MG/DL (7-18); BUN/CREATININE RATIO 22.6 (10.0-20.0); CALCIUM 9.6 MG/DL (8.5-10.1); CHLORIDE 97 MMOL/L (99-107); CREATININE 0.84 MG/DL (0.40-0.90); GLUCOSE 285 MG/DL (70-104); LIPASE 19 U/L (16-77); POTASSIUM 3.7 MMOL/L (3.5-5.1); SODIUM 132 MMOL/L (135-145); TOTAL CARBON DIOXIDE 21.7 MMOL/L (24-32); TOTAL PROTEIN 8.2 G/DL (6.4-8.2); eCRCL 80 ML/MIN; eGFR 79 ML/MIN
[2023-03-29] MEDS ORDERED: normal saline 1000ML IV soln IVB ONE ×2 (13:00→16:30)
[2023-03-29] MEDS ORDERED: metoclopramide 5 mg/ml inj IV ONE (13:00)
[2023-03-29] MEDS ORDERED: morphine 4 MG/ML inj SYRINge IV ONE (13:00)
[2023-03-29 13:13] LABS: MICROCYTOSIS 1+; PLATELET ESTIMATE NORMAL; TOTAL CELLS COUNTED 100
--- NOTE | 2023-03-29 13:51 | NUR ---
PT. REFUSED MORPHINE AND ZOFAN AT THIS TIME.
[2023-03-29 16:18] VITALS: TEMP 98.7
[2023-03-29] MEDS ORDERED: ondansetron/PF 4mg/2ml inj IV ONE (16:30)
[2023-03-29] MEDS ORDERED: ONDA4TAB12 PO (16:49)
[2023-03-29 17:18] LABS: BILIRUBIN,URINE NEGATIVE (Neg); CLARITY,URINE CLEAR (Clear); COLOR,URINE YELLOW (Yellow); GLUCOSE, URINE 500 mg/dl (Neg); KETONES,URINE 40 mg/dl (Neg); LEUKOCYTE ESTERASE ,URINE NEGATIVE (Neg); NITRITES, URINE NEGATIVE (Neg); OCCULT BLOOD,URINE NEGATIVE (Neg); PH,URINE 5.5 (4.8-8.0); PROTEIN,URINE NEGATIVE (Neg); UROBILINOGEN,URINE 0.2 E.U/dL (0.2-1.0)
[2023-03-29 17:19] LABS: URINE HCG NEGATIVE (NEG)
[2023-03-29 17:23] LABS: UA COLLECTION TYPE NON-SPECIFIED
[2023-03-29 17:47] VITALS: BP 142/53; PULSE 109; RESP 16; O2SAT 96
== END 2023-03-29 17:41 | disposition home or self-care (01) ==
LOC: ER 11:20
DX: R11.2 Nausea with vomiting, unspecified (principal); E78.00 Pure hypercholesterolemia, unspecified; E11.9 Type 2 diabetes mellitus without complications; F41.9 Anxiety disorder, unspecified; Z90.49 Acquired absence of other specified parts of digestive tract; Z88.2 Allergy status to sulfonamides; Z79.899 Other long term (current) drug therapy
CPT/HCPCS: 80053; 81003; 81025; 83690; 85007; 85025; 96361; 96374; 96375; 99285; J2270; J2405; J2765; J7030; A4615

== ENCOUNTER 2024-08-05 13:06 | Outpatient (CLI) | payer OTHER ==
[~2024-08-05 13:06] MED LIST changes: +ONDA-243 PO; -ONDA4TAB12 PO
[2024-08-05] MEDS ORDERED: GADOTERATE MEGLUMINE 7.5 MMOL/15 ML VIAL IV ONE (14:44)
== END 2024-08-05 23:59 | disposition home or self-care (01) ==
LOC: MRI 13:06
PROVIDERS: ATTEND Nurse Practitioner Family
DX: G43.109 Migraine with aura, not intractable, without status migrainosus (principal); E10.9 Type 1 diabetes mellitus without complications; H53.19 Other subjective visual disturbances
CPT/HCPCS: 70543; 70553; A9575